=== PATIENT | male | born 1950 | race Caucasian/White ===

== ENCOUNTER → 2017-04-01 | Outpatient (CLI) | payer OTHER ==
[~2017-04-01] MED LIST: DEXAMETHASONE SOD PHOS 4 MG/ML VIAL ONE; IOHEXOL 300 MG/ML 50 ML VIAL. ONE; LIDOCAINE 1% PF 30 ML VIAL. ONE
== END ==
LOC: SURG 09:36
PROVIDERS: ATTEND Anesthesiology Pain Medicine
DX: M54.12 Radiculopathy, cervical region (principal); I10 Essential (primary) hypertension; E78.00 Pure hypercholesterolemia, unspecified; H40.9 Unspecified glaucoma; I63.9 Cerebral infarction, unspecified
CPT/HCPCS: 62321; J1100; J2001; Q9967

== ENCOUNTER 2019-11-27 06:58 | Inpatient (IN) | payer MEDICARE, OTHER ==
[~2019-11-27] VITALS: Ht 170.2 cm; Wt 60.5 kg
[2019-11-27] MEDS ORDERED: 0.9 % SODIUM CHLORIDE 10 ML DISP.SYRIN. IV PRN (07:00)
--- NOTE | 2019-11-27 07:00 | PHYS DOC ---
Past History Past Medical History: CAD, CVA, Dementia, Diabetes, ME, TIA Past Medical History dysphagia and chronic muscle weakness Past Surgical History poor historian, see assisted paperwork Smoking: Quit Greater Than 1 Year Alcohol Use: None General Adult EDM: Chief Complaint: shortnss of air, chest pain HPI: HPI: Patient is a 69 year old male who presents via EMS for evaluation of chest pain and shortness of air. Patient is currently a resident at the [facility]. Sats were below 90% prior to arrival. Patient placed on high flow oxygen nonrebreather and his sats were high 90%. Patient states he had central chest pain. Sats were 93% on 2 L improved to 97% on 3 L nasal cannula. Patient states he had a recent mild cough. There is no known cases of COVID at his facility. Patient was a mild to moderate distress on arrival. He is a somewhat poor historian and has a baseline status of dementia. Patient has a known coronary artery disease history. He is DNR Review of Systems: Review of Systems: Constitutional: Denies fever or chills Eyes: Denies change in visual acuity HENT: Denies nasal congestion or sore throat Respiratory: has cough and shortness of breath Cardiovascular: has chest pain with mild edema GI: Denies abdominal pain, nausea, vomiting, bloody stools or diarrhea : Denies dysuria Musculoskeletal: Denies back pain or joint pain Integument: Denies rash Neurologic: Denies headache, focal weakness or sensory changes Endocrine: Denies polyuria or polydipsia Lymphatic: Denies swollen glands Psychiatric: Denies depression or anxiety Heart Score: Risk Factors: Risk Factors: DM, Current or recent (<one month) smoker, HTN, HLP, family history of CAD, obesity. Risk Scores: Score 0 - 3: 2.5% MACE over next 6 weeks - Discharge Home Score 4 - 6: 20.3% MACE over next 6 weeks - Admit for Clinical Observation Score 7 - 10: 72.7% MACE over next 6 weeks - Early Invasive Strategies Physical Exam: PE: Constitutional: Well developed, well nourished, moderate distress, non-toxic appearance. [] HENT: Normocephalic, atraumatic, bilateral external ears normal, oropharynx moist, no oral exudates, nose normal. [] Eyes: PERRL, EOMI, conjunctiva normal, no discharge. [] Neck: Normal range of motion, no tenderness, supple, no stridor. [] Cardiovascular:tachy rate regular rhythm, no murmur [] Lungs & Thorax: Bilateral breath sounds slightly diminished, clear to auscultation [] Abdomen: Bowel sounds normal, soft, no tenderness. [] Skin: Warm, dry, no erythema, no rash. [] Back: No tenderness. [] Extremities: No tenderness, no cyanosis, no clubbing, ROM intact, mild edema. [] Neurologic: Alert and oriented to person, normal motor function, normal sensory function, no focal deficits noted. [] Psychologic: flat normal, judgement normal, mood normal. [] Current Patient Data: Labs: Laboratory Tests Test 11/27/19 07:07 11/27/19 07:23 White Blood Count 6.8 x10^3/uL Red Blood Count 3.89 x10^6/uL Hemoglobin 13.0 g/dL Hematocrit 38.6 % Mean Corpuscular Volume 99 fL Mean Corpuscular Hemoglobin 33 pg Mean Corpuscular Hemoglobin Concent 34 g/dL Red Cell Distribution Width 14.2 % Platelet Count 191 x10^3/uL Neutrophils (%) (Auto) 69 % Lymphocytes (%) (Auto) 19 % Monocytes (%) (Auto) 5 % Eosinophils (%) (Auto) 6 % Basophils (%) (Auto) 1 % Neutrophils # (Auto) 4.7 x10^3uL Lymphocytes # (Auto) 1.3 x10^3/uL Monocytes # (Auto) 0.4 x10^3/uL Eosinophils # (Auto) 0.4 x10^3/uL Basophils # (Auto) 0.1 x10^3/uL Sodium Level 140 mmol/L Potassium Level 4.4 mmol/L Chloride Level 105 mmol/L Carbon Dioxide Level 33 mmol/L Anion Gap 2 Blood Urea Nitrogen 15 mg/dL Creatinine 1.1 mg/dL Estimated GFR (Cockcroft-Gault) 66.8 BUN/Creatinine Ratio 14 Glucose Level 202 mg/dL Lactic Acid Level 0.8 mmol/L Calcium Level 8.7 mg/dL Total Bilirubin 0.4 mg/dL Aspartate Amino Transf (AST/SGOT) 22 U/L Alanine Aminotransferase (ALT/SGPT) 34 U/L Alkaline Phosphatase 82 U/L Troponin I Quantitative 0.022 ng/mL Total Protein 6.2 g/dL Albumin 2.9 g/dL Albumin/Globulin Ratio 0.9 Prothrombin Time 34.8 SEC Prothromb Time International Ratio 3.4 Current Medications Medications (Trade) Dose Ordered Sig/Roma Route PRN Reason Start Time Stop Time Status Last Admin Dose Admin Sodium Chloride (Normal Saline Flush) 10 ml QSHIFT PRN IV AFTER MEDS AND BLOOD DRAWS 11/27/19 07:00 Aspirin (Aspirin Chewable) 324 mg 1X ONCE PO 11/27/19 07:15 11/27/19 07:18 DC 11/27/19 07:15 Sodium Chloride 1,000 ml @ 1,000 mls/hr 1X ONCE IV 11/27/19 07:45 11/27/19 08:44 11/27/19 07:47 Piperacillin Sod/ Tazobactam Sod 3.375 gm/Sodium Chloride 50 ml @ 100 mls/hr 1X ONCE IV 11/27/19 07:45 11/27/19 08:14 11/27/19 07:51 Sodium Chloride 1,000 ml @ 1,000 mls/hr 1X ONCE IV 11/27/19 07:45 11/27/19 08:44 11/27/19 07:47 Piperacillin Sod/ Tazobactam Sod (Zosyn) 3.375 gm STK-MED ONCE IV 11/27/19 07:44 11/27/19 07:44 DC Sodium Chloride 50 ml @ As Directed STK-MED ONCE .ROUTE 11/27/19 07:45 11/27/19 07:45 DC EKG: EKG: EKG: sinus tachy rate 112, NS ST segment changes, not STEMI[] Radiology/Procedures: Radiology/Procedures: [place] [address] IMAGING REPORT Signed PATIENT: SYDNIE CORREA ACCOUNT: [id number] : 1950 LOCATION: ER AGE: 69 SEX: M EXAM STATUS: REG ER ORD. PHYSICIAN: KRISHNA NEGRON DO REASON: chest pain, shortness of breath Hx-no heart/lung hx PROCEDURE: PORTABLE CHEST 1V PORTABLE CHEST 1V History: Chest pain, shortness of breath Comparison: April 01, 2015 Findings: Single view of the chest is submitted. There is again emphysema. There is no dependent pleural fluid, pneumothorax, or lobar consolidation. However there is increased interstitial opacity bilaterally with basilar predominance. Pericardial cardiac silhouette is considered within normal limits given technique, size similar. There is atherosclerotic calcification near aortic arch. There are thoracic spinal stimulator leads. There is evidence of calcific tendinosis of the left shoulder. Impression: 1. There is increased interstitial opacity with basilar predominance as may be due to interstitial edema or infiltrate. There is emphysema. Electronically signed by: Caitlin Ortega MD (11/27/2019 7:45 AM) [id number] DICTATED AND SIGNED BY: CAITLIN ORTEGA MD DATE: 11/27/19 07 CC: BJ DARBY; KRISHNA NEGRON DO ~ [] Course & Med Decision Making: Course & Med Decision Making Pertinent Labs and Imaging studies reviewed. (See chart for details) [] Dragon Disclaimer: Dragon Disclaimer: This electronic medical record was generated, in whole or in part, using a voice recognition dictation system. 0740 current blood pressure 81/57. This is lower than the presenting blood pressure that was above 100 systolic. 30 cc/kg bolus NS has been ordered as well as dose of IV Zosyn. 0800 Stable, still has SBP low 80s. Some improvement after being placed in trendelenburg position. Pt is awake and baseline alert with no focal deficits at this time. Tachycardia has resolved. No obvious indication of a bacterial illness including white blood cell count or lactic acid elevation 0815 patient having increasing respirator stress and a recheck shows that he now has some rhonchi bilaterally present. I am concerned he may be fluid ov erloaded. He had been given a liter bolus because of concerns about his hypertension. When his blood pressure was taken on his left arm it is now 163/75. Patient given dose of Lasix 40 mg IV. Patient received approximately 1.5 L bolus so further fluid infusion halted. Sats are above 93% on 5 L nasal cannula. Patient is DNR. 0821 Dr. Taylor is the accepting physician to the telemetry bed. He wanted pt to be on telemetry bed rather than ICU 0828 patient going into severe respiratory distress. He would not allow us to have oxygen on and tries to stand up. Dose of ketamine given for sedation as well as soft restraints. 0855 patient resting comfortably and doing well. Sats back up to 90% on BiPAP. Awaiting ICU bed Departure Departure: Impression: Primary Impression: Pulmonary edema Qualified Codes: J81.0 - Acute pulmonary edema Additional Impressions: Respiratory failure Qualified Codes: J96.01 - Acute respiratory failure with hypoxia Precordial chest pain Hypotension Disposition: ADMITTED INPATIENT Admitting Physician: Braulio Taylor Condition: STABLE Referrals: SHERRY LANDRY APRN (PCP) Justification of Admission: Justification of Admission: Justification of Admission Dx: Yes CHF: Hemodynamic Instability Respiratory Failure: Severe Resp Distress COVID-19 Assessment COVID-19 Patient Risks: Age 65 or older: Yes Sign of co-morbidity: Yes Exp to person + for COVID: No Exp to PUI: No Travel from affected area: No Lower respiratory symptoms: Yes Fever: No Other: No PPE Use: Full PPE with N95 mask or PAPR: Yes Critical Care Time Critical care time was 30 minutes exclusive of procedures. Patient placed on BiPAP but required sedation with ketamine so we could tolerate that device. Dr. Taylor aware of this change KRISHNA NEGRON DO Nov 27, 2019 07:00
[2019-11-27] MEDS ORDERED: ASPIRIN CHEWABLE 81 MG TABLET. PO ONE (07:15)
--- NOTE | 2019-11-27 07:17 | EKG ---
[address] [address] Test Date: 2019-11-27 Test Time: 06:58:06 Pat Name: SYDNIE CORREA Department: Room: Gender: M Principal Quality Engineer: : 1950 Requested By: KRISHNA NEGRON Order Number: [id number] Reading MD: Measurements Intervals [place] Rate: 112 P: 86 [place]: 130 QRS: 58 QRSD: 80 T: 66 QT: 326 QTc: 447 Interpretive Statements SINUS TACHYCARDIA LEFT ATRIAL ABNORMALITY QRS(T) CONTOUR ABNORMALITY CONSISTENT WITH ANTEROSEPTAL INFARCT PROBABLY OLD ABNORMAL ECG RI6.02 No previous ECG available for comparison
[2019-11-27 07:25] LABS: BASO # 0.1 x10^3/uL (0.0-0.2); BASO % 1 % (0-3); EOS # 0.4 x10^3/uL (0.0-0.7); EOS % 6 % (0-3); HEMATOCRIT 38.6 % (39.0-53.0); LYMPH # 1.3 x10^3/uL (1.0-4.8); LYMPH % 19 % (24-48); MEAN CORPUSCULAR HEMOGLOBIN 33 pg (25-35); MEAN CORPUSCULAR HGB CONC 34 g/dL (31-37); MEAN CORPUSCULAR VOLUME 99 fL (79-100); MONO # 0.4 x10^3/uL (0.0-1.1); MONO % 5 % (0-9); NEUT # 4.7 x10^3uL (1.8-7.7); NEUT % 69 % (31-73); PLATELET COUNT 191 x10^3/uL (140-400); RED BLOOD COUNT 3.89 x10^6/uL (4.30-5.70); RED CELL DISTRIBUTION WIDTH 14.2 % (11.5-14.5); WHITE BLOOD COUNT 6.8 x10^3/uL (4.0-11.0)
[2019-11-27] MEDS ORDERED: PIPERACILLIN/TAZOBACTAM 3.375 GM VIAL IV ONE (07:44)
[2019-11-27] MEDS ORDERED: PIPERACILLIN/TAZOBACTAM 3.375 GM in IV NORMAL SALINE 50ML 50 ML IV ONE (07:45)
[2019-11-27] MEDS ORDERED: IV NORMAL SALINE 50ML 50 ML ONE (07:45)
[2019-11-27] MEDS ORDERED: IV NORMAL SALINE 1,000ML 1,000 ML IV ONE ×2 (07:45)
--- NOTE | 2019-11-27 07:48 | RAD ---
PORTABLE CHEST 1V History: Chest pain, shortness of breath Comparison: April 01, 2015 Findings: Single view of the chest is submitted. There is again emphysema. There is no dependent pleural fluid, pneumothorax, or lobar consolidation. However there is increased interstitial opacity bilaterally with basilar predominance. Pericardial cardiac silhouette is considered within normal limits given technique, size similar. There is atherosclerotic calcification near aortic arch. There are thoracic spinal stimulator leads. There is evidence of calcific tendinosis of the left shoulder. Impression: 1. There is increased interstitial opacity with basilar predominance as may be due to interstitial edema or infiltrate. There is emphysema. Electronically signed by: Jonathan Bocanegra MD (11/27/2019 7:45 AM) [id number]
[2019-11-27 07:53] LABS: CALCIUM 8.7 mg/dL (8.5-10.1); CREATININE 1.1 mg/dL (0.7-1.3); GFR 66.8; POTASSIUM 4.4 mmol/L (3.5-5.1)
[2019-11-27 07:58] LABS: ALBUMIN 2.9 g/dL (3.4-5.0); ALBUMIN/GLOBULIN RATIO 0.9 (1.0-1.7); TOTAL BILIRUBIN 0.4 mg/dL (0.2-1.0); TOTAL PROTEIN 6.2 g/dL (6.4-8.2)
[2019-11-27] MEDS ORDERED: FUROSEMIDE 40 MG/4 ML VIAL ONE (08:13)
[2019-11-27] MEDS ORDERED: FUROSEMIDE 40 MG/4 ML VIAL IVP ONE (08:20)
[2019-11-27] MEDS ORDERED: KETAMINE HCL 500 MG/10 ML VIAL. ONE (08:28)
[2019-11-27] MEDS ORDERED: KETAMINE HCL IN NACL, ISO-OSM 50 MG/5 ML SYRINGE IV ONE ×2 (08:30→08:45)
[2019-11-27] MEDS ORDERED: ONDANSETRON PF 4 MG/2 ML VIAL. IVP PRN (08:45)
[2019-11-27] MEDS ORDERED: FUROSEMIDE 100 MG/10 ML VIAL IVP ONE (08:45)
[2019-11-27 09:46] LABS: BILIRUBIN,URINE NEG (NEG); CLARITY,URINE HAZY; COLOR,URINE YELLOW; GLUCOSE,URINE NEG (NEG); NITRITE,URINE NEG (NEG); UROBILINOGEN,URINE 0.2 mg/dL (0.2 mg/dL)
[2019-11-27 09:47] LABS: BACTERIA,URINE 0 /HPF (0-FEW); SQUAMOUS EPITHELIAL CELL,UR MANY /LPF
[2019-11-27 09:48] LABS: GRANULAR CASTS,URINE OCC /HPF; HYALINE CASTS, URINE OCC /HPF
[2019-11-27 11:00] VITALS: BP 126/53
--- NOTE | 2019-11-27 11:03 | NUR ---
Pt admitted to ICU bed 6. Pt arrived on unit via gurney accompanied by ems. Pt belongings checked, vitals taken, head to toe completed. Pt resting at time of this note.
--- NOTE | 2019-11-27 12:55 | HP ---
ADMIT DATE: 11/27/2019 ATTENDING PHYSICIAN: Dr. Washington. CHIEF COMPLAINT: Shortness of breath. HISTORY OF PRESENT ILLNESS: The patient is a 69-year-old gentleman, resident of [facility] in [place]. He was sent to the ED with increasing shortness of breath. He had decreased saturation and the saturations were below 90%. He was given some fluids. Chest x-ray demonstrated cardiomegaly, vascular congestion and COPD changes. Because of guidelines in the ED, he was tested for COVID-19 coronavirus. There is not any evidence of outbreak of coronavirus at this facility. His chest x-ray appears he is ____. There is a longstanding history of heart failure. He has had a previous stroke. He is not a good historian. He was admitted with acute on chronic respiratory failure related to congestive heart failure. PAST MEDICAL HISTORY: Gleaned from the care home notes he has a history of coronary artery disease, congestive heart failure, type 2 diabetes, old CVA with residual deficits, metabolic encephalopathy, old myocardial infarct, dysphagia. He had a feeding tube placed, but this recently fell out. He had been eating. He is a DNR per advanced directive. CURRENT MEDICATIONS: Reviewed. He was on aspirin daily, Lipitor 80 mg daily, Lantus insulin, Coreg 3.125 mg b.i.d., Coumadin 7 mg daily, latanoprost eye drops, multivitamin, NovoLog along with Lantus insulin, Protonix 40 daily, paroxetine 10 mg daily, Flomax, thiamine, and Ultram p.r.n. pain. ALLERGIES: He has no recorded drug allergies. FAMILY HISTORY: Unobtainable. REVIEW OF SYSTEMS: Unobtainable due to the patient's condition. PHYSICAL EXAMINATION: GENERAL: When I saw him, this is a pleasant, but chronically ill-appearing gentleman, he did respond to some questions. INITIAL VITAL SIGNS: Showed a blood pressure 140/71, pulse is 94 and regular, respirations 18, he is afebrile, and oxygen saturations 100% on BiPAP. HEENT: Head is without trauma. Pupils are reactive. Sclerae nonicteric. Oropharynx is clear. NECK: Supple. Venous pressure distended at 45 degrees. LUNGS: Fairly good air movement. He has minimal crackles at the bases. CARDIOVASCULAR: Showed distant heart tones. No gallops. Peripheral pulses are palpable and full. ABDOMEN: Soft, scaphoid, nontender. Previous surgical scar from feeding tube is healed over. There is no fistula or drainage ____. There is no guarding or rebound tenderness. No masses palpated. EXTREMITIES: Showed no cyanosis or edema. He is bedridden and nonambulatory. Espinal catheter is in place. SKIN: Warm and dry. NEUROLOGIC: He is not aware of place or time. PERTINENT LABORATORY AND X-RAY STUDIES: Chest x-ray as noted. Hemoglobin is 13.0 g/dL with white count of 6800. Electrolytes are within normal range with a sodium 140 mEq/L, potassium is 4.4 mEq/L, creatinine is 1.1 mg/dL, nonfasting blood sugar 202 mg/dL. The first set of cardiac enzymes was measured at 0.02, which I do not believe is ischemia. ASSESSMENT: 1. A 69-year-old gentleman with acute on chronic congestive heart failure. 2. Acute on chronic respiratory failure. 3. Underlying chronic obstructive pulmonary disease. 4. Known coronary artery disease with previous myocardial infarction. 5. Old stroke with residual deficits. 6. Essential hypertension. 7. Dysphagia following stroke. 8. Recent placement of a percutaneous endoscopic gastrostomy tube, which has since fallen out. 9. Chronic anticoagulation. PLAN: 1. Admit to the inpatient unit. 2. We will continue preload and afterload reduction. I will order more Lasix. 3. Diabetic diet. 4. Serial chemistries. 5. Continue some home meds. ABHINAV WASHINGTON MD DR: SMILEY/[place] JOB#: [id number] / [id number]
[2019-11-27] MEDS ORDERED: ACETAMINOPHEN 325 MG TABLET PO PRN (13:30)
[2019-11-27] MEDS ORDERED: ATOR80TA72 PO (14:10)
[2019-11-27] MEDS ORDERED: LATA2.5D3 OU (14:10)
[2019-11-27] MEDS ORDERED: PANT40TA6 PO (14:10)
[2019-11-27] MEDS ORDERED: TRAM50TA PO (14:10)
[2019-11-27] MEDS ORDERED: INSU100I13 SQ (14:10)
[2019-11-27] MEDS ORDERED: CARV6.253 PO (14:10)
[2019-11-27] MEDS ORDERED: PARO10TA3 PO (14:10)
[2019-11-27] MEDS ORDERED: TAMSULOSIN PO (14:10)
[2019-11-27 15:00] VITALS: BP 122/89
[2019-11-27] MEDS ORDERED: WARFARIN 7.5 MG TABLET. PO SCH (16:00)
[2019-11-27] MEDS ORDERED: DEXTROSE 50% 25 GM / 50ML DISP.SYRIN. IV PRN (16:15)
--- NOTE | 2019-11-27 16:26 | CARD ---
MR#: [id number] Date of Study: 11/27/2019 Ordering Physician: ABHINAV WASHINGTON, Referring Physician: ABHINAV WASHINGTON, Tech: Deb Parks RDCS APPROVED REPORT EXAM: Two-dimensional and M-mode echocardiogram with Doppler and color Doppler. Other Information Quality : Fair INDICATION Cardiac Disease: CAD Chest Pain Dementia-Patient unable to remain still for the procedure 2D DIMENSIONS RVDd2.0 (2.9-3.5cm)Left Atrium(2D)2.8 (1.6-4.0cm) IVSd0.5 (0.7-1.1cm)Aortic Root(2D)2.8 (2.0-3.7cm) LVDd5.9 (3.9-5.9cm)LVOT Diameter2.3 (1.8-2.4cm) PWd0.7 (0.7-1.1cm)LVDs5.0 (2.5-4.0cm) FS (%) 15.8 %SV56.9 ml LVEF(%)30.0 (>50%) Aortic Valve AoV Peak Cuate.77.2cm/sAoV VTI11.4cm AO Peak GR.2.4mmHgAO Mean GR.1mmHg JAZMINE (VTI)4.62ol3SX P 1/2 [id number] Mitral Valve MV E Pyyulzlo79.4cm/sMV DECEL [id number] MV A Iouyrott37.5cm/sE/A Ratio1.2 LEFT VENTRICLE The left ventricle is normal size. There is normal left ventricular wall thickness. Left ventricle sy stolic function is severely impaired. The Ejection Fraction is 20-25%. RIGHT VENTRICLE The right ventricle is normal size. The right ventricular systolic function is normal. ATRIA The left atrium size is normal. The right atrium size is normal. The interatrial septum is intact wit h no evidence for an atrial septal defect or patent foramen ovale as noted on 2-D or Doppler imaging. AORTIC VALVE The aortic valve is not well visualized. Doppler and Color Flow revealed mild to moderate aortic regu rgitation. There is no significant aortic valvular stenosis. MITRAL VALVE The mitral valve is calcified but opens well. There is no evidence of mitral valve prolapse. There is no mitral valve stenosis. Doppler and Color-flow revealed trace mitral regurgitation. TRICUSPID VALVE The tricuspid valve is normal in structure and function. Doppler and Color Flow revealed no tricuspid valve regurgitation noted. There is no tricuspid valve stenosis. PULMONIC VALVE The pulmonic valve is not well visualized. GREAT VESSELS The aortic root is normal in size. The ascending aorta is not well seen. The IVC is normal in size an d collapses >50% with inspiration. PERICARDIAL EFFUSION There is moderate pleural effusion. There is no evidence of significant pericardial effusion. Critical Notification Critical Value: No <Conclusion> Left ventricle systolic function is severely impaired. The Ejection Fraction is 20-25%. Mild to moderate aortic regurgitation. Trace mitral regurgitation. There is no evidence of significant pericardial effusion. Signed by : Aly Gonzales, Electronically Approved : 11/27/2019 16:26:17
[2019-11-27] MEDS: INSULIN LISPRO 300 UNITS/3 ML VIAL. SQ SCH (17:00)
[2019-11-27 19:25] VITALS: BP 143/61
[2019-11-27] MEDS: LISINOPRIL 10 MG TABLET PO SCH (20:37)
[2019-11-27 22:45] VITALS: BP 120/46
[2019-11-28 08:00] VITALS: BP 118/53
[2019-11-28] MEDS: LACTOBACILLUS RHAMNOSUS GG 1 CAPSULE. PO SCH (08:34)
[2019-11-28] MEDS: ASPIRIN CHEWABLE 81 MG TABLET. PO SCH (08:34)
[2019-11-28] MEDS: FUROSEMIDE 80 MG TABLET PO SCH (08:35)
[2019-11-28] MEDS: LISINOPRIL 10 MG TABLET PO SCH (08:35)
[2019-11-28] MEDS: INSULIN LISPRO 300 UNITS/3 ML VIAL. SQ SCH ×3 (09:10→16:56)
[2019-11-28 12:00] VITALS: BP 125/53
[2019-11-28] MEDS: THIAMINE 100 MG TABLET. PO SCH (12:11)
--- NOTE | 2019-11-28 12:19 | NUR ---
Pharmacy Warfarin Dosing Note S:Pharmacy consulted to assist with anticoagulation therapy with target INR: 2 -3 O:SYDNIE CORREA is a 69 year old M with post [place] LABS: Last INR: 2.9 Last HGB: 13 Last HCT: 38.6 Last PLT: 191 Last dose of Hold given on 11/26/19 at [facility] [place] Previous Regimen: 7 mg daily Vitamin K given: N Drug Interaction Changes: None Ongoing Drug Interactions: none INR on admission = 3.4, dose held on 11/26. A:INR within desired range. [facility] advised that pt has been mostly stable on 7mg daily. Occasionally patient's INR will rise due to med/diet changes, they'll hold 1-2 doses and pt will be within range again. Advised that they would give regular daily dose with pt's current INR of 2.9. Since pt has reportedly been stable/therapeutic on this dose we will resume his regular regimen. P: Warfarin dose: 7mg Today at 1600 Bridge Therapy: None Next INR due 11/28 Pharmacy anticoagulation service will continue to follow. [facility], 11/28/19 7321
[2019-11-28 16:00] VITALS: BP 105/64
[2019-11-28] MEDS ORDERED: WARFARIN 1 MG TABLET. PO ONE (16:00)
[2019-11-28] MEDS ORDERED: WARFARIN 6 MG TABLET. PO ONE (16:00)
--- NOTE | 2019-11-28 18:35 | NUR ---
Pt remained relaxed throughout the day with some stiffness and frequently exercised all extremities. Looked out through the window for the majority of the day and rested peacefully in bed. Only complaint is frequent urination from diuresis and wants to go home. Pending rapid COVID 19 result sent out today awaiting results in order to return to [facility].
[2019-11-28 20:07] VITALS: BP 112/59
[2019-11-28 22:20] VITALS: BP 125/71
--- NOTE | 2019-11-29 02:30 | PN ---
DATE: 11/28/2019 ATTENDING PHYSICIAN: Dr. Washington. CHIEF COMPLAINT: Shortness of breath. SUBJECTIVE: The patient is less dyspneic. He is doing well. He wants to go home. He is pleasantly confused. He has been living at [facility] in [place]. He had an echocardiogram done, which showed evidence of decreased ejection fraction. OBJECTIVE FINDINGS: VITAL SIGNS: Today, his blood pressure is 120/46 in the left arm, 143/61 in the right arm. There is significant difference due to a documented history of subclavian steal syndrome. Pulse is 92 and regular. He is afebrile. Oxygen saturation is adequate with 2 liters of nasal cannula. HEENT: Head is without trauma. Pupils are reactive. Sclerae is nonicteric. Oropharynx is clear. NECK: Supple, no bruits identified. LUNGS: Good breath sounds. CARDIOVASCULAR: Showed regular heart tones. No obvious gallops. Peripheral pulses are palpable and full. ABDOMEN: Soft, scaphoid, nontender, no organomegaly. Bowel sounds are hypoactive. EXTREMITIES: Show trace edema. NEUROLOGIC: Focally intact. He is pleasantly confused. Speech is fluent. The 2-D echocardiogram showed diminished ejection fraction estimated at 20-25%. Electrolytes were reviewed. Medications were reviewed. ASSESSMENT: 1. A 69-year-old gentleman with acute on chronic congestive heart failure, compensated. 2. Acute on chronic respiratory failure, resolved. 3. Underlying chronic obstructive pulmonary disease. 4. Known coronary artery disease with previous MD and ischemic cardiomyopathy. 5. Old stroke with cerebrovascular accident. 6. Documented subclavian steal syndrome on the left side. 7. Essential hypertension. 8. Dysphagia. 9. Recent placement of endoscopic gastrostomy tube, which has since fallen out. 10. Chronic anticoagulation. PLAN: 1. Continue preload and afterload reduction. 2. Daily Lasix that will be continued. 3. We will restart his Coumadin upon discharge. 4. The reason he is still here, there was a COVID-19 coronavirus swab done in the ED, once the results of that is available and negative, we can return him and discharge him back to [facility]. ABHINAV WASHINGTON MD DR: SMILEY/[place] JOB#: [id number] / [id number]
--- NOTE | 2019-11-29 06:22 | NUR ---
Shift Note: Pt is a/o to self only, VSS throughout shift, no c/o pain or n/v at this time, IV is saline locked, pt is voiding clear yellow urine, Covid test was negative, pt anticipating discharge today (pt confused and thinks he needs to go to work, this is his baseline d/t dementia).
[2019-11-29 06:29] VITALS: BP 126/59
[2019-11-29 07:34] LABS: CALCIUM 8.8 mg/dL (8.5-10.1); CREATININE 0.9 mg/dL (0.7-1.3); GFR 84.2; POTASSIUM 3.7 mmol/L (3.5-5.1)
[2019-11-29] MEDS: THIAMINE 100 MG TABLET. PO SCH (08:37)
[2019-11-29] MEDS: LACTOBACILLUS RHAMNOSUS GG 1 CAPSULE. PO SCH (08:37)
[2019-11-29] MEDS: FUROSEMIDE 80 MG TABLET PO SCH (08:37)
[2019-11-29] MEDS: ASPIRIN CHEWABLE 81 MG TABLET. PO SCH (08:37)
[2019-11-29] MEDS: LISINOPRIL 10 MG TABLET PO SCH (09:03)
[2019-11-29] MEDS: INSULIN LISPRO 300 UNITS/3 ML VIAL. SQ SCH ×2 (10:35→12:34)
[2019-11-29 11:00] VITALS: BP 143/58
--- NOTE | 2019-11-29 12:28 | NUR ---
Pharmacy Warfarin Dosing Note S:Pharmacy consulted to assist with anticoagulation therapy started with target INR: 2 -3 O:SYDNIE CORREA is a 69 year old M with Recurrent VTE LABS: Last INR: 2 Last HGB: 13 Last HCT: 38.6 Last PLT: 191 Last dose of 7MG given on 11/28/19 at 1600 Previous Regimen: 7 mg daily Vitamin K given: N Drug Interaction Changes: Same Interacting Drug Ongoing Drug Interactions: none INR on admission = 3.4, dose held on 11/26. A:INR Within desired Range. Target Range for this patient is: 2 -3 P: Warfarin dose: 7MG Today at 1600 Bridge Therapy: None Next INR due 11/30/19 @ 0600 Pharmacy anticoagulation service will continue to follow. FLORES SEWELL [facility], 11/29/19 1246
[2019-11-29] MEDS ORDERED: WARF1TAB2 PO (14:27)
--- NOTE | 2019-11-29 14:32 | NUR ---
Patient in chair in room at shift change. Alert to self with forgetfulness. Pleasant and cooperative with assessment and medication administration. Patient needed prompting for eating and taking medications. Ambulates independently without difficulty. VSS, denies pain or SOA. Will continue to monitor.
[2019-11-29] MEDS ORDERED: WARFARIN 3 MG TABLET. PO ONE (16:00)
[2019-11-29] MEDS ORDERED: WARFARIN 4 MG TABLET. PO ONE (16:00)
--- NOTE | 2019-11-29 16:04 | NUR ---
Patient discharged to [facility] which is where he was admitted from. Report called to Catherine at [facility]. Medications reviewed and prescriptions attached to discharge paperwork. IV's removed.
--- NOTE | 2019-11-29 18:09 | DS ---
DATE OF DISCHARGE: 11/27/2019 HOSPITAL COURSE: The patient is a 69-year-old male patient, a resident at [facility], who was admitted with worsening shortness of breath. Chest x-ray demonstrated cardiomegaly and vascular congestion and COPD changes. Given the guidelines in the Emergency Department, he was tested for COVID-19 coronavirus. There is not any evidence of an outbreak of coronavirus at this facility. Chest x-ray was consistent with congestive heart failure. He has had a previous stroke. He is not a good historian. He was admitted with acute on chronic respiratory failure related to congestive heart failure, treated aggressively with diuresis. He has had an echocardiogram, which showed that his left ventricular systolic function is severely impaired, ejection fraction is of 20-25%, [id number] aortic regurgitation, trace mitral regurgitation. There is no evidence of significant pericardial effusion. PHYSICAL EXAMINATION: GENERAL: When I saw him today, he was sitting comfortably in the edge of the bed, in no apparent distress. He was pale, not jaundice, cyanosis or thyromegaly. No jugular venous distention. No lower limb edema. VITAL SIGNS: His heart rate was 77, blood pressure 143/58, temperature 97.5, respiratory rate was 23, and oxygen saturation was 94% on 2 liters of oxygen. The rest of clinical exam is stable and particularly his lungs are clear. His oxygen saturation was 95% on room air. LABORATORY DATA: His lab work showed his prothrombin time was 20.6, INR of 2. His sodium was 140, potassium 3.7, chloride 103, bicarbonate 29, anion gap of 8, BUN 20, creatinine 0.9, estimated GFR was 84 mL per minute. His glucose was 223 and calcium was 8.8. His white cell count was 6800, hemoglobin 13, hematocrit 39, MCV 99 and platelet count of 191,000. His COVID-19 by PCR was negative. DISCHARGE MEDICATIONS: He was discharged back to [facility] to continue on warfarin 3 mg daily, atorvastatin calcium 80 mg at bedtime, carvedilol 3.125 mg twice a day, Lantus insulin 10 units subcutaneously at bedtime, latanoprost 1 drop to both eyes at bedtime, Protonix 40 mg daily, paroxetine 10 mg daily, tamsulosin 0.4 mg daily, tramadol 50 mg every 6 hours. FINAL DISCHARGE DIAGNOSES: 1. Acute on chronic congestive heart failure, well compensated. 2. Acute on chronic respiratory failure, resolved. 3. Chronic obstructive pulmonary disease. 4. Coronary artery disease, status post myocardial infarction and ischemic cardiomyopathy. 5. Cerebrovascular accident. 6. Documented subclavian steal syndrome on the left side. 7. Essential hypertension. 8. Dysphagia. 9. Recent placement of endoscopic gastrostomy tube that has since fallen out. 10. Chronic anticoagulation. ALBERTO VALLES MD DR: BRUNO/[place] JOB#: [id number] / [id number]
--- NOTE | 2019-11-29 23:02 | DS ---
DATE OF DISCHARGE: 11/29/2019 HISTORY AND HOSPITAL COURSE: The patient is a 69-year-old male patient, resident at [facility], who was admitted with increasing shortness of breath. He was hypoxic. His chest x-ray demonstrated cardiomegaly and vascular congestion and COPD changes. Because of guidelines in the Emergency Department, he was tested for COVID-19 coronavirus. There is not any evidence of outbreaks of coronavirus at that facility. His chest x-ray appeared to have heart failure. He has a longstanding history of heart failure. He has had previous stroke. He is not a good historian. He was admitted with acute on chronic respiratory failure related to congestive heart failure. He apparently was treated with furosemide and he did very well. His COVID test was undetected and when I saw him today, he was sitting at the edge of the bed comfortably in no apparent respiratory distress... DICTATION ENDS HERE ALBERTO VALLES MD DR: BRUNO/[place] JOB#: [id number] / [id number]
== END 2019-11-29 16:00 | DRG 291 ==
LOC: ER 06:58 → ICU 10:28
PROVIDERS: ADMIT Hospitalist; ATTEND Internal Medicine
DX: I11.0 Hypertensive heart disease with heart failure (principal); J96.21 Acute and chronic respiratory failure with hypoxia; G45.8 Other transient cerebral ischemic attacks and related syndromes; I50.23 Acute on chronic systolic (congestive) heart failure; E11.9 Type 2 diabetes mellitus without complications; F03.90 Unspecified dementia, unspecified severity, without behavioral disturbance, psychotic disturbance, mood disturbance, and anxiety; I25.10 Atherosclerotic heart disease of native coronary artery without angina pectoris; I25.2 Old myocardial infarction; I25.5 Ischemic cardiomyopathy; J43.9 Emphysema, unspecified; Z66 Do not resuscitate; Z79.01 Long term (current) use of anticoagulants; Z86.73 Personal history of transient ischemic attack (TIA), and cerebral infarction without residual deficits; Z87.891 Personal history of nicotine dependence; Z20.828 Contact with and (suspected) exposure to other viral communicable diseases
CPT/HCPCS: 36415; 51702; 71045; 80048; 80053; 81001; 82947; 83605; 84484; 85025; 85610; 87040; 93005; 93306; 94660; 96365; 96375; J1815; J1940; J2543; 99291-25; J7030; U0003-CS

== ENCOUNTER 2020-05-14 17:43 | Emergency (ER) | payer MEDICARE ==
[~2020-05-14] VITALS: Ht 322.6 cm; Wt 60.5 kg
[~2020-05-14 17:43] MED LIST changes: +ATOR80TA72 PO; +CARV6.253 PO; -DEXAMETHASONE SOD PHOS 4 MG/ML VIAL ONE; +INSU100I13 SQ; -IOHEXOL 300 MG/ML 50 ML VIAL. ONE; +LATA2.5D3 OU; -LIDOCAINE 1% PF 30 ML VIAL. ONE; +PANT40TA6 PO; +PARO10TA3 PO; +TAMSULOSIN PO; +TRAM50TA PO; +WARF1TAB2 PO
[2020-05-14 17:58] VITALS: BP 144/70
--- NOTE | 2020-05-14 18:36 | PHYS DOC ---
Past History Past Medical History: CAD, CVA, Dementia, Diabetes, [place], TIA Additional Past Medical Histor: ENCEPHALOPATHY, EMOLISM OF AORTA, ACUTE RESPIRATORY FAILURE, Past Surgical History: Other Smoking: Quit Greater Than 1 Year Alcohol Use: None Adult General Chief Complaint Chief Complaint: NOSEBLEED [facility] HPI Patient is a 70-year-old male [facility] [place] [facility] nose[facility]ed. Patient is DNR status and on hospice care. He currently takes 81 mg aspirin daily in addition to Coumadin for unknown reason. States he had approximately 3 self-limiting nosebleeds today that responded with direct pressure all involving his right nare. He never has history of recurrent nosebleeds like this. He usually has his INR checked weekly, last time it was checked was May 09, 2020 and was 2.4 at that time. Patient otherwise has no complaints, is not dizzy, no lightheadedness, no falls, no syncope, no chest pain, no shortness of breath, no abdominal pain, no other signs of overt bleeding with urination or defecation, no hemoptysis. Review of Systems Review of Systems Fourteen body systems of review of systems have been reviewed. See HPI for pertinent positives and negative responses, other jones all other systems are negative, non-pertinent or non-contributory Allergies Allergies Allergies Coded Allergies Type Severity Reaction Last Updated Verified No Known Drug Allergies 05/14/20 No Physical Exam Physical Exam Constitutional: Well developed, well nourished, no acute distress, non-toxic appearance. HENT: Normocephalic, atraumatic, bilateral external ears normal, oropharynx dry, no oral exudates, dried residual blood around patient's perioral area, external nose unremarkable, dried residual blood within the right nare with no obvious signs of active bleeding and/or trauma Eyes: PERRLA, EOMI, conjunctiva normal, no discharge. Neck: Normal range of motion, no tenderness, supple, no stridor. Cardiovascular: Heart rate regular, sinus rhythm, no murmurs rubs or gallops Lungs & Thorax: Bilateral breath sounds clear to auscultation, no respiratory distress Abdomen: Bowel sounds normal, soft, no tenderness, no masses, no pulsatile masses. Nonsurgical abdomen, no peritoneal signs Skin: Warm, dry, no erythema, no rash. Back: No tenderness, no CVA tenderness. Extremities: No tenderness, no cyanosis, no clubbing, no edema. Dried blood present on bilateral hands from prior epistaxis episodes today, right index finger nail with residual blood underneath nail concerning for potential digital penetration/trauma Neurologic: Alert and oriented X 3, grossly normal motor & sensory function, no gross focal deficits noted. Psychologic: Behavior normal for situation Current Patient Data Vital Signs Vital Signs Date Time Temp Pulse Resp B/P (MAP) Pulse Ox O2 Delivery O2 Flow Rate FiO2 05/14/20 17:58 83 18 144/70 (94) 95 Room Air 05/14/20 17:45 97.6 Lab Results Laboratory Tests Test 05/14/20 18:30 White Blood Count 4.2 x10^3/uL (4.0-11.0) Red Blood Count 3.86 x10^6/uL (4.30-5.70) Hemoglobin 12.0 g/dL (13.0-17.5) Hematocrit 37.1 % (39.0-53.0) Mean Corpuscular Volume 96 fL (79-100) Mean Corpuscular Hemoglobin 31 pg (25-35) Mean Corpuscular Hemoglobin Concent 33 g/dL (31-37) Red Cell Distribution Width 16.4 % (11.5-14.5) Platelet Count 178 x10^3/uL (140-400) Prothrombin Time 28.7 SEC (9.4-11.4) Prothromb Time International Ratio 2.9 (0.9-1.1) EKG EKG [] Radiology/Procedures Radiology/Procedures [] Heart Score HEART Score for Chest Pain: HEART Score for Chest Pain Response (Comments) Value History Slighlty/Non-Suspicious 0 Age > 65 2 Risk Factors >3 Risk Factors or Hx CAD 2 Total 4 Risk Factors: Risk Factors: DM, Current or recent (<one month) smoker, HTN, HLP, family history of CAD, obesity. Risk Scores: Risk Factors: DM, Current or recent (<one month) smoker, HTN, HLP, family history of CAD, obesity. Course & Med Decision Making Course & Med Decision Making Discussed with the patient all findings and diagnostic testing. I discussed most likely diagnosis of epistaxis in patient on aspirin and Coumadin therapy. I suspect source to be either digital trauma versus dry nares. I called patient's care home and discussed case with his nurse, I discussed need for utilizing daily nasal sprays to moisten nares given recent cold weather front and cold air. I also advised her to monitor patient to ensure he does not try to pick nose which might have caused patient's recurrent episodes today. No medical changes required at present given INR within range, it is unknown why he is on Coumadin but I advised nurse to discuss this more with PCP who obviously knows more about patient's past medical history them we do. Strict return precautions were also discussed at length with good understanding by care home nurse. We discussed and reviewed how to manage nosebleed should they arise in the future and when to return for repeat evaluation. Hemodynamically stable, asymptomatic and well-appearing at time of disposition [facility] to [facility] Dragon Disclaimer Dragon Disclaimer This electronic medical record was generated, in whole or in part, using a voice recognition dictation system. Departure Departure: Impression: Primary Impression: Right-sided nosebleed Additional Impression: Anticoagulated on Coumadin Disposition: DC HOME SELF CARE/HOMELESS Condition: STABLE Referrals: BJ DARBY (PCP) Patient Instructions: Nosebleed Additional Instructions: You were seen for a nosebleed. You should blow your nose and hold pressure on the lower part of your nose if you develop a nose bleed again. Continue this fo r 20 minutes or until the bleeding stops. Do not remove the pressure to look before this time as your nose will start bleeding again. Your bleeding is most likely due to irritation due to irritation and/or trauma. You were also on aspirin and Coumadin which are blood thinning medications, I am unsure why you are on Coumadin but this should be discussed further with your care home physician. You need to avoid putting anything in your nose in the future (e.g. fingers, kleenex, qtips, etc). Utilize Afrin nose spray as needed if available at your care home. I would also recommend you utilize daily saline nose spray to moisten your nares as they appeared very dry likely due to current cold weather front in our area today. It was a pleasure to take care of you and I wish you the best going forward Problem Qualifiers AUNDREA LYNN DO May 14, 2020 18:36
[2020-05-14 18:44] LABS: HEMATOCRIT 37.1 % (39.0-53.0); RED BLOOD COUNT 3.86 x10^6/uL (4.30-5.70); RED CELL DISTRIBUTION WIDTH 16.4 % (11.5-14.5); WHITE BLOOD COUNT 4.2 x10^3/uL (4.0-11.0)
== END 2020-05-14 19:20 | disposition home or self-care (01) ==
LOC: ER 17:43
DX: R04.0 Epistaxis (principal); Z79.01 Long term (current) use of anticoagulants; I25.10 Atherosclerotic heart disease of native coronary artery without angina pectoris; F03.90 Unspecified dementia, unspecified severity, without behavioral disturbance, psychotic disturbance, mood disturbance, and anxiety; E11.9 Type 2 diabetes mellitus without complications; I25.2 Old myocardial infarction; Z86.73 Personal history of transient ischemic attack (TIA), and cerebral infarction without residual deficits; Z87.891 Personal history of nicotine dependence
CPT/HCPCS: 36415; 85027; 85610; 99283

== ENCOUNTER 2020-08-23 14:30 | Emergency (ER) | payer MEDICARE ==
[~2020-08-23] VITALS: Ht 167.6 cm; Wt 60.5 kg
[2020-08-23 14:30] VITALS: BP 163/60
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
== END 2020-08-23 16:12 | disposition home or self-care (01) ==
LOC: ER 14:30
DX: R45.1 Restlessness and agitation (principal); I25.10 Atherosclerotic heart disease of native coronary artery without angina pectoris; F03.90 Unspecified dementia, unspecified severity, without behavioral disturbance, psychotic disturbance, mood disturbance, and anxiety; E11.9 Type 2 diabetes mellitus without complications; I25.2 Old myocardial infarction; Z86.73 Personal history of transient ischemic attack (TIA), and cerebral infarction without residual deficits; Z87.891 Personal history of nicotine dependence
CPT/HCPCS: 99284

== ENCOUNTER 2021-03-16 15:28 | Emergency (ER) | payer MEDICARE ==
[~2021-03-16] VITALS: Ht 167.6 cm; Wt 60.5 kg
[2021-03-16 15:36] VITALS: BP 116/63
--- NOTE | 2021-03-16 15:43 | PHYS DOC ---
Past History Past Medical History: CAD, CVA, Dementia, Diabetes, [place], TIA, Other Additional Past Medical Histor: ENCEPHALOPATHY, EMOLISM OF AORTA, ARF, Past Surgical History: Other Smoking: Quit Greater Than 1 Year Alcohol Use: None General Adult EDM: Chief Complaint: SHOULDER INJURY HPI: HPI: 70-year-old male presents from his care facility with right shoulder pain. Patient has dementia at baseline. He tells me that the right shoulder hurts. He states that he fell on it but he does not remember the details of how it happened. The care facility told EMS that the patient fell forward out of the wheelchair and caught himself with his arms. He was back in the wheelchair when EMS arrived. Patient denies any other injuries or complaints at this time. Review of Systems: Review of Systems: Constitutional: Denies fever or chills Eyes: Denies change in visual acuity HENT: Denies nasal congestion or sore throat Respiratory: Denies cough or shortness of breath Cardiovascular: Denies chest pain or edema GI: Denies abdominal pain, nausea, vomiting, bloody stools or diarrhea : Denies dysuria Musculoskeletal: Right shoulder pain Integument: Denies rash Neurologic: Denies headache, focal weakness or sensory changes Endocrine: Denies polyuria or polydipsia Lymphatic: Denies swollen glands Psychiatric: Denies depression or anxiety Allergies: Allergies: Allergies Coded Allergies Type Severity Reaction Last Updated Verified No Known Drug Allergies 05/14/20 No Physical Exam: PE: Constitutional: Well developed, well nourished, no acute distress, non-toxic appearance. [] HENT: Normocephalic, atraumatic, bilateral external ears normal, oropharynx moist, no oral exudates, nose normal. [] Eyes: PERRLA, EOMI, conjunctiva normal, no discharge. [] Neck: Normal range of motion, no tenderness, supple, no stridor. [] Cardiovascular:Heart rate regular rhythm, no murmur [] Lungs & Thorax: Bilateral breath sounds clear to auscultation [] Abdomen: Bowel sounds normal, soft, no tenderness, no masses, no pulsatile ma sses. [] Skin: Warm, dry, no erythema, no rash. [] Back: No tenderness, no CVA tenderness. [] Extremities: Right shoulder tender to palpation, no ecchymosis, no obvious deformity. Range of motion limited by pain. [] Neurologic: Alert and oriented X 3, normal motor function, normal sensory func tion, no focal deficits noted. [] Psychologic: Affect normal, judgement normal, mood normal. [] Current Patient Data: Vital Signs: Vital Signs Date Time Temp Pulse Resp B/P (MAP) Pulse Ox O2 Delivery O2 Flow Rate FiO2 03/16/21 15:36 98.2 75 16 116/63 (80) 99 Room Air EKG: EKG: [] Radiology/Procedures: Radiology/Procedures: [] Impressions: Exam Date: 03/16/2021 3:34 PM XR SHOULDER_RIGHT 2+ VIEWS Indication: Reason: fall / Spl. Instructions: pt moving, y view repeated 2 still pt would not cooperate / History: . FINDINGS/ IMPRESSION: No acute fracture or dislocation. Moderate degenerative changes are noted. Alignment is maintained. Small calcifications in the humeral head are consistent with calcific tendinitis. Aorta is calcified. The soft tissues are within normal limits. Electronically signed by: Rodríguez Hoover MD (03/16/2021 4:37 PM) [id number] DICTATED AND SIGNED BY: RODRÍGUEZ HOOVER MD DATE: 03/16/21 1613 CC: ELEANOR HURD DO; BJ DARBY ~MTH0 0 Heart Score: C/O Chest Pain: N/A Risk Factors: Risk Factors: DM, Current or recent (<one month) smoker, HTN, HLP, family history of CAD, obesity. Risk Scores: Score 0 - 3: 2.5% MACE over next 6 weeks - Discharge Home Score 4 - 6: 20.3% MACE over next 6 weeks - Admit for Clinical Observation Score 7 - 10: 72.7% MACE over next 6 weeks - Early Invasive Strategies Course & Med Decision Making: Course & Med Decision Making Pertinent Labs and Imaging studies reviewed. (See chart for details) The patient's x-ray is negative for fracture. He already has fentanyl pain patches for chronic back pain. These should help with his shoulder pain. He is stable for discharge at this time. [] Dragon Disclaimer: Dragon Disclaimer: This electronic medical record was generated, in whole or in part, using a voice recognition dictation system. Departure Departure: Impression: Primary Impression: Shoulder pain, right Qualified Codes: M25.511 - Pain in right shoulder Disposition: 01 HOME / SELF CARE / HOMELESS Condition: STABLE Referrals: BJ DARBY (PCP) Patient Instructions: Shoulder Pain, [id number] ELEANOR HURD DO Mar 16, 2021 15:43
--- NOTE | 2021-03-16 16:39 | RAD ---
Exam Date: 03/16/2021 3:34 PM XR SHOULDER_RIGHT 2+ VIEWS Indication: Reason: fall / Spl. Instructions: pt moving, y view repeated 2 still pt would not coopera te / History: . FINDINGS/ IMPRESSION: No acute fracture or dislocation. Moderate degenerative changes are noted. Alignment is maintained. Small calcifications in the humeral head are consistent with calcific tendinitis. Aorta is calcifi ed. The soft tissues are within normal limits. Electronically signed by: Mateo Hoover MD (03/16/2021 4:37 PM) [id number]
== END 2021-03-16 17:31 | disposition home or self-care (01) ==
LOC: ER 15:28
DX: M25.511 Pain in right shoulder (principal); I25.10 Atherosclerotic heart disease of native coronary artery without angina pectoris; F03.90 Unspecified dementia, unspecified severity, without behavioral disturbance, psychotic disturbance, mood disturbance, and anxiety; E11.9 Type 2 diabetes mellitus without complications; I25.2 Old myocardial infarction; Z86.73 Personal history of transient ischemic attack (TIA), and cerebral infarction without residual deficits; Z87.891 Personal history of nicotine dependence
CPT/HCPCS: 73030; 99283

== ENCOUNTER 2021-03-19 08:29 | Emergency (ER) | payer MEDICARE, OTHER ==
[~2021-03-19] VITALS: Ht 167.6 cm; Wt 57.0 kg
[2021-03-19 08:35] VITALS: BP 187/90
--- NOTE | 2021-03-19 08:48 | PHYS DOC ---
Past History Past Medical History: CAD, CVA, Dementia, Diabetes, [place], TIA, Other Additional Past Medical Histor: ENCEPHALOPATHY, EMOLISM OF AORTA, ARF, Past Medical History Limited secondary to dementia Past Surgical History: Other Past Surgical History Limited secondary to dementia Smoking: Quit Greater Than 1 Year Alcohol Use: None Social History Limited secondary to dementia General Adult EDM: Chief Complaint: Agitation HPI: HPI: 70-year-old male with past medical history of dementia presents via EMS from assisted with report of increased agitation this morning. Patient with history of right shoulder pain for which patient was seen in the emergency department at [facility] on Wednesday03/16/2021. Per [facility] review x- rays obtained at that time without acute fracture or dislocation and noted some possible calcified tendonitis. [facility] reports patient became agitated this morning and complained of right shoulder pain. Patient was given a hydrocodone and a tramadol at 0730. Patient reportedly became more hostile and was banging his head on wall. Nurse tried to give patient 2 mg of Ativan which he reportedly "spit at her ". [facility] concerned that patient requires psychiatric evaluation and therefore had patient transferred to the ER for further evaluation. Patient denies any suicidal ideation. History of present illness limited secondary to dementia. Review of Systems: Review of Systems: Constitutional: Denies fever or chills GI: Denies vomiting : Denies dysuria or hematuria Musculoskeletal: Reports right shoulder pain Integument: Denies rash or skin lesions Neurologic: Denies headache Review of systems limited secondary to dementia. Current Medications: Current Meds: Current Medications Medications (Trade) Dose Ordered Sig/Roma Start Time Stop Time Status Last Admin Dose Admin Diazepam (Valium) 5 mg 1X ONCE 03/19/21 08:45 03/19/21 08:46 Allergies: Allergies: Allergies Coded Allergies Type Severity Reaction Last Updated Verified No Known Drug Allergies 05/14/20 No Physical Exam: PE: Constitutional: Elderly, thin, complains of pain to right shoulder HENT: Normocephalic, atraumatic Eyes: PERRL, EOMI, conjunctiva normal, no discharge Neck: Normal range of motion, supple Lungs & Thorax: No respiratory distress, equal chest rise and fall Abdomen: Soft, no tenderness Skin: Warm, dry, no erythema, no rash Extremities: Right glenohumeral tenderness, ROM limited secondary to pain, no edema, right radial pulse +2 Neurologic: Alert and oriented X name only, confused, no focal deficits noted Psychologic: Affect agitated, judgment abnormal, denies suicidal ideation EKG: EKG: [] Radiology/Procedures: Radiology/Procedures: [] Heart Score: C/O Chest Pain: N/A Course & Med Decision Making: Course & Med Decision Making Elderly patient with past medical history of dementia presents with report of increased agitation which appears secondary to patient's right shoulder pain. Patient with recent ED evaluation on Wednesday03/16/2021 for shoulder with x-rays without acute fracture/dislocation but noted calcified tendonitis obtained at at time per [employer] review. Patient reportedly received hydrocodone and tramadol at 0730. Nurse had attempted to give patient some Ativan which he reportedly "spit at her ". [facility] sent patient for a "psych examination ". Patient denying suicidal or homicidal ideation. Patient is agitated but seems to stem around patient's right shoulder pain. Valium 5 mg p.o. given. Shoulder immobilizer applied for comfort. Patient does not meet criteria for inpatient psychiatric stay. Patient safe for discharge back to assisted and may follow normal protocol for possible [facility] admission through our facility if needed. Patient stable for discharge back to assisted with outpatient follow-up with PCP/orthopedics. Orthopedic referral provided. [facility] report given. Williams Disclaimer: Williams Disclaimer: This electronic medical record was generated, in whole or in part, using a voice recognition dictation system. Splinting Splinting : Location: Right shoulder Pre-Made Type: shoulder immobilizer Pre-Proc Neuro Vasc Exam: normal Post-Proc Neuro Vasc Exam: normal, unchanged from pre-exam Departure Departure: Impression: Primary Impression: Right shoulder pain Qualified Codes: M25.511 - Pain in right shoulder; G89.29 - Other chronic pain Additional Impressions: Dementia Qualified Codes: G30.9 - Alzheimer's disease, unspecified; F02.81 - Dementia in other diseases classified elsewhere with behavioral disturbance Agitation Disposition: HOME / SELF CARE / HOMELESS (back to assisted) Condition: STABLE Referrals: BJ DARBY (PCP) DANETTE PACHECO MD Patient Instructions: Dementia, [id number], Shoulder Immobilizer, Shoulder Pain, [id number] ALLISON ONEAL DO Mar 19, 2021 08:47
[2021-03-19] MEDS: diazePAM 5 MG TABLET. PO ONE (09:30)
== END 2021-03-19 11:15 | disposition home or self-care (01) ==
LOC: ER 08:29
DX: M25.511 Pain in right shoulder (principal); F03.90 Unspecified dementia, unspecified severity, without behavioral disturbance, psychotic disturbance, mood disturbance, and anxiety; R45.1 Restlessness and agitation; E11.9 Type 2 diabetes mellitus without complications; Z86.73 Personal history of transient ischemic attack (TIA), and cerebral infarction without residual deficits; Z87.891 Personal history of nicotine dependence
CPT/HCPCS: 29105; 99283-25

== ENCOUNTER 2021-03-20 12:23 | Emergency (ER) | payer MEDICARE, OTHER ==
[~2021-03-20] VITALS: Ht 167.6 cm; Wt 54.7 kg
[2021-03-20 12:29] VITALS: BP 167/69
--- NOTE | 2021-03-20 13:49 | PHYS DOC ---
Past History Past Medical History: CAD, CVA, Dementia, Diabetes, [place], TIA, Other Additional Past Medical Histor: ENCEPHALOPATHY, EMOLISM OF AORTA, ARF, (BERENICE DIAZ) Past Surgical History: Other (BERENICE DIAZ) Smoking: Quit Greater Than 1 Year Alcohol Use: None (BERENICE DIAZ) General Adult EDM: Chief Complaint: UPPER EXTREMITY PAIN HPI: HPI: Patient is a 70 year old male well-known to the emergency department with history of dementia and chronic right shoulder pain who presents with right shoulder pain from [facility]. Patient was seen yesterday here in the emergency department for identical complaints. Patient has several prescribed medications available to him at his residential facility. Patient responds affirmatively when asked if he has shoulder pain, but does not converse otherwise. (BERENICE DIAZ) Review of Systems: Review of Systems: Unable to obtain due to patient's baseline dementia. (BERENICE DIAZ) Allergies: Allergies: Allergies Coded Allergies Type Severity Reaction Last Updated Verified No Known Drug Allergies 05/14/20 No (BERENICE DIAZ) Physical Exam: PE: Exam limited secondary to patient being uncooperative. Constitutional: Well developed, well nourished, no acute distress, non-toxic appearance. HENT: Normocephalic, atraumatic, bilateral external ears normal, no oral exudat es, external nose normal. Neck: Normal range of motion, no tenderness, no stridor. Cardiovascular: Heart rate regular rhythm. Lungs & Thorax: Bilateral breath sounds clear to auscultation. Back: No step-off, no tenderness tenderness, no CVA tenderness. Extremities: No tenderness, no cyanosis, no clubbing, no edema. Neurologic: No focal deficits noted. Psychologic: Affect uncooperative, poor judgment. (BERENICE DIAZ) Current Patient Data: Vital Signs: Vital Signs Date Time Temp Pulse Resp B/P (MAP) Pulse Ox O2 Delivery O2 Flow Rate FiO2 03/20/21 12:29 97.9 98 16 167/69 (101) 100 (BERENICE DIAZ) Heart Score: C/O Chest Pain: N/A (BERENICE DIAZ) Course & Med Decision Making: Course & Med Decision Making Pertinent Labs and Imaging studies reviewed. (See chart for details) Patient is extremely uncooperative and prefers to sleep rather than being interviewed and examined. Patient does respond affirmatively to right shoulder pain, however refuses to answer questions related to pain. When asked if there was anything that I could provide for him here in the emergency department, he did not answer. Patient will be discharged back to his [facility] facility with instruction to administer pain medication as prescribed. (BERENICE DIAZ) Course & Med Decision Making Did not see or evaluate patient. Did not discuss patient with PA. Agree with PAs work-up and disposition per note. (KRISHNA TATE MD) Dragon Disclaimer: Dragon Disclaimer: This electronic medical record was generated, in whole or in part, using a voice recognition dictation system. (BERENICE DIAZ) Departure Departure: Impression: Primary Impression: Chronic shoulder pain Qualified Codes: M25.511 - Pain in right shoulder; G89.29 - Other chronic pain Additional Impression: Dementia Qualified Codes: F03.91 - Unspecified dementia with behavioral disturbance Disposition: HOME / SELF CARE / HOMELESS Condition: STABLE Referrals: BJ DARBY (PCP) Patient Instructions: Shoulder Pain, [id number] Additional Instructions: Patient should be given pain medication as prescribed. Please return to the emergency department if new symptoms develop. BEERNICE DIAZ Mar 20, 2021 13:49 KRISHNA TATE MD Mar 20, 2021 13:52
== END 2021-03-20 16:20 | disposition home or self-care (01) ==
LOC: ER 12:23
DX: M25.511 Pain in right shoulder (principal); F03.90 Unspecified dementia, unspecified severity, without behavioral disturbance, psychotic disturbance, mood disturbance, and anxiety; E11.9 Type 2 diabetes mellitus without complications; Z87.891 Personal history of nicotine dependence; Z86.73 Personal history of transient ischemic attack (TIA), and cerebral infarction without residual deficits
CPT/HCPCS: 96372; 99283; J2060

== ENCOUNTER 2021-04-06 04:10 | Inpatient (IN) | payer MEDICARE, OTHER ==
[~2021-04-06] VITALS: Ht 172.7 cm; Wt 54.0 kg
[2021-04-06] VITALS (48 sets, daily range): BP systolic 60–178; BP diastolic 32–104
--- NOTE | 2021-04-06 04:16 | PHYS DOC ---
Past History Past Medical History: A-Fib, Anxiety, Arthritis, CAD, CVA, Dementia, Diabetes, [place], TIA, Other Additional Past Medical Histor: ENCEPHALOPATHY, EMOLISM OF AORTA, ARF, Past Surgical History: Other Smoking: Quit Greater Than 1 Year Alcohol Use: None General Adult HPI: HPI: ".. Help...Help.. I need Help... take at easy .. take at easy.. get out of here..." ".. Mother fuck.. fuck off.. bring me down.. Fuck everything hurt.. bring me down.." help me.. bring me down..." " Fuck my arm hurts...".." Arm... Arm.. its the fucking arm ..mother fucker... the arm..." Patient is a 70 year old male who presents with above hx and comoplaints of fall. Pt. a resident of [facility] since 04/02/2021. Pt. hx of fall this morning. Pt. had a witness fall where he struck his head. Pt. fell on Lt. side and localized pain primary in Lt. arm.. Pt. has hx of Lt sided weakness from previous CVA. Pt. has history of anxiety disorder, cerebral infarction, embolism and thrombosis of aorta, major depressive disorder, neurological neglect, problems with urethra, TIAs, vascular dementia, psychotic disorder, dysphagia, cerebral infarction, long-term use of anticoagulants, generalized muscle weakness, myocardial infarctions, type 2 diabetes with hyperglycemia, unspecified dementia behavioral disturbances, gait disorder. Patient currently following with Dr. Charisma Darby at the senior care. Patient is DNR. Review of Systems: Review of Systems: Constitutional: Denies fever or chills Eyes: Denies change in visual acuity HENT: Denies nasal congestion or sore throat Respiratory: Denies cough or shortness of breath Cardiovascular: Complains of left-sided chest pain GI: Denies abdominal pain, nausea, vomiting, bloody stools or diarrhea : Denies dysuria Musculoskeletal: Complains of left arm pain Integument: Denies rash Neurologic: Complaints of headache. Has history of left-sided, fweakness or sensory changes from previous stroke Endocrine: Denies polyuria or polydipsia Lymphatic: Denies swollen glands Psychiatric: Denies depression or anxiety Family History: Family History: Not currently available Current Medications: Current Meds: See nursing for home meds Allergies: Allergies: Allergies Coded Allergies Type Severity Reaction Last Updated Verified No Known Drug Allergies 05/14/20 No Physical Exam: PE: Constitutional: Moderate acute distress, demented and frail and appearance. [] HENT: Normocephalic, contusion to scalp, bilateral external ears normal, oropharynx moist, no oral exudates, nose normal. [] Eyes: PERRLA, EOMI, conjunctiva normal, no discharge. [] Neck: Normal range of motion, some upper neck tenderness, supple, no stridor. [] Cardiovascular:Heart rate regular rhythm, no murmur []. PMI to left Lungs & Thorax: Bilateral breath sounds equal apex with scattered wheezes and basilar crackles bilaterally. On auscultation [] patient has some upper left wall chest tenderness. Abdomen: Bowel sounds normal, soft, no tenderness, no masses, no pulsatile masses. Old surgery scars, distended, Skin: Warm, dry, no erythema, no rash. Poor turgor Back: No tenderness, no CVA tenderness. [] Extremities: Left upper arm tenderness, no cyanosis, no clubbing, ROM intact, no edema. Left-sided weakness from previous stroke. Distal neurovascular equal and left hand as it is in right hand. Neurologic: Alert and oriented to name,, moves extremities on request, appears to have distal sensory,, left-sided weakness which he states is old stroke Psychologic: Affect agitated, yelling, judgement impaired , mood depressed EKG: EKG: My interpretation EKG shows a sinus rhythm at 86 bpm. Some nonspecific contour normality and anterior septal changes. No findings acute STEMI of contralateral changes. [] Radiology/Procedures: Radiology/Procedures: [address] [address] IMAGING REPORT Signed PATIENT: SYDNIE CORREA ACCOUNT: [id number] : 1950 LOCATION: ER AGE: 70 SEX: M EXAM STATUS: REG ER ORD. PHYSICIAN: DANETTE EVANS MD REASON: fall, chest wall pain Lt PROCEDURE: PORTABLE CHEST 1V XR CHEST 1V History: Fall, chest wall pain left. Comparison: Shoulder radiographs 03/16/2021 Technique: Portable AP radiograph of the chest. Findings: The lungs are adequately and symmetrically inflated. No airspace consolidation, pleural effusion or pneumothorax. Calcification of the aortic arch. Cardiac mediastinal silhouette and pulmonary vasculature are within normal limits. Spinal stimulator leads project over the thoracic spine. There is irregularity at the right clavicular head superior margin, suspect subacute injury. Left neck surgical clip. The left humerus fracture is not imaged on this exam. Impression: 1. No acute cardiopulmonary process. 2. Cortical irregularity at the superior aspect of the right clavicular head. Possibly subacute injury. Correlate with tenderness at this location. Electronically signed by: Alphonso Vallecillo MD (04/06/2021 5:43 AM) [id number] DICTATED AND SIGNED BY: ALPHONSO VALLECILLO MD DATE: 04/06/21539 CC: DANETTE EVANS MD; CHARISMA DARBY ~MTH0 [address] [place] [address] IMAGING REPORT Signed PATIENT: SYDNIE CORREA ACCOUNT: [id number] : 1950 LOCATION: ER AGE: 70 SEX: M EXAM STATUS: REG ER ORD. PHYSICIAN: DANETTE EVANS MD REASON: Fall, Head Injury-on anticoagulants PROCEDURE: CT HEAD AND CERVICAL SPINE WO CT HEAD AND C-SPINE WO History: Fall, head injury on anticoagulants. Comparison: None. Technique: Noncontrast CT of the head and cervical spine. Findings: CT HEAD: There is no evidence for intracranial mass or hemorrhage. There is no hydrocephalus or midline shift. No abnormal extra-axial fluid collections are present. There are large bilateral posterior parietal-occipital infarcts The visualized paranasal sinuses and mastoid air cells are clear. The skull and scalp are within normal limits. CT CERVICAL SPINE: There is no evidence for fracture in the cervical spine. Alignment is normal. Multilevel degenerative disc and facet disease. No destructive osseous lesions are seen. Bilateral carotid calcifications. Impression: 1. Large bilateral HAND BLOCKER territory infarcts, suspect chronic. No acute hemorrhage. 2. No acute osseous abnormality in the cervical spine. Findings discussed with Dr. Evans at 04/06/2021 5:40 AM. FOR INTERNAL CODING PURPOSES RESULT CODE: (C) ------- Exposure: One or more of the following individualized dose reduction techniques were utilized for this examination: 1. Automated exposure control 2. Adjustment of the mA and/or kV according to patient size 3. Use of iterative reconstruction technique. Electronically signed by: Alphonso Vallecillo MD (04/06/2021 5:40 AM) [id number] DICTATED AND SIGNED BY: ALPHONSO VALLECILLO MD DATE: 04/06/21531 CC: DANETTE EVANS MD; CHARISMA DARBY ~[facility] [address] [address] IMAGING REPORT Signed PATIENT: SYDNIE CORREA ACCOUNT: [id number] : 1950 LOCATION: ER AGE: 70 SEX: M EXAM STATUS: REG ER ORD. PHYSICIAN: DANETTE EVANS MD REASON: fall, chest wall pain Lt PROCEDURE: HUMERUS LEFT XR HUMERUS_LT 2 VIEWS History: Fall, chest wall pain on the left. Comparison: Chest x-ray 04/06/2021 Technique: 2 views the left shoulder. Findings: Mildly comminuted fracture of the proximal humerus surgical neck with angulation and displacement. Calcification in region of the rotator cuff insertion are likely chronic. The visualized left lung is clear. Degenerative changes of the acromioclavicular joint. Mild contour irregularity in the lateral sixth and seventh ribs, likely old healed fracture. Impression: 1. Mildly comminuted proximal left humerus fracture at the surgical neck with angulation and displacement. Electronically signed by: Alphonso Vallecillo MD (04/06/2021 5:45 AM) [id number] DICTATED AND SIGNED BY: ALPHONSO VALLECILLO MD DATE: 04/06/21542 CC: DANETTE EVANS MD; CHARISMA DARBY ~[facility]0 0 [[address] [address] IMAGING REPORT Signed PATIENT: SYDNIE CORREA ACCOUNT: [id number] : 1950 LOCATION: ICU AGE: 70 SEX: M EXAM STATUS: ADM IN ORD. PHYSICIAN: ALBERTO VALLES MD REASON: fall on xarelto PROCEDURE: CT CHEST ABDOMEN PELVIS WO PQRS Compliance Statement: One or more of the following individualized dose reduction techniques were utilized for this examination: 1. Automated exposure control 2. Adjustment of the mA and/or kV according to patient size 3. Use of iterative reconstruction technique Exam performed: CT chest, abdomen and pelvis with contrast HISTORY: Fall, patient is on blood thinners DATE OF SERVICE: 04/06/2021. COMPARISON: None available. TECHNIQUE: Contiguous helical acquisitions are obtained through the chest, abdomen and pelvis without IV contrast. Sagittal and coronal reformatted images are obtained and reviewed. FINDINGS: CT of chest: Structures at the thoracic inlet including both lobes of the thyroid gland are normal. Unopacified neck and intrathoracic great vessels are normal in course and caliber. Diffuse atheromatous aortic calcification is seen. Extensive atheromatous coronary calcification with a suspected stent in the left anterior descending branch. The heart size is normal. No pericardial effusion. No mediastinal or hilar adenopathy is seen. Lungs are clear. There are mild interstitial opacities in the dependent aspect of both lower lobes likely chronic. Bones are normal. CT abdomen and pelvis: Unopacified liver, spleen, pancreas and gallbladder are normal. Both adrenal glands and bilateral kidneys are normal in size with no evidence of hydronephrosis or nephrolithiasis. Diffuse atheromatous aortic calcification is noted. Small and large bowel loops are nondilated and unremarkable. The urinary bladder is distended. No pelvic masses or lymphadenopathy seen. There is stool impaction the rectosigmoid region. Bones are normal. IMPRESSION: No acute findings seen in the CT chest, abdomen and pelvis. Chronic changes as outlined above. Electronically signed by: Ansley Henriquez MD (04/06/2021 1:23 PM) [facility] DICTATED AND SIGNED BY: ANSLEY HENRIQUEZ MD DATE: 04/06/21 1320 CC: ALBERTO VALLES MD; WILNERCHARISMA ~MTH0 0 ][address] [address] IMAGING REPORT Signed PATIENT: SYDNIE CORREA ACCOUNT: [id number] : 1950 LOCATION: ICU AGE: 70 SEX: M EXAM STATUS: ADM IN ORD. PHYSICIAN: ALBERTO VALLES MD REASON: AMS s/p fall, possible bleed PROCEDURE: CT HEAD WO CONTRAST Exam: CT head without contrast. Date: 04/06/2021, comparison:CT head and cervical spine without contrast from earlier today Indication: Altered mental status, status post fall Technique: Helical acquisitions are obtained from the foramen magnum to the vertex and through the cervical spine without IV contrast. Sagittal and coronal reformatted images are obtained and reviewed. Findings: CT head without contrast The study somewhat limited due to motion blur. There is low attenuation within the periventricular white matter consistent with chronic small vessel ischemic disease. Prominence of cortical sulci and ventricular system is noted. There is cerebral atrophy. Chronic bilateral HAND BLOCKER infarcts redemonstrated. Midline structures are central. No hydrocephalus. No suspicious cerebral edema. No mass lesion or midline shift is seen. No extra axial fluid collection, intracranial hemorrhage or acute ischemia is detected. The visualized paranasal sinuses and mastoid air cells are clear. The osseous calvarium appears unremarkable. Impression: 1.Chronic small vessel ischemic disease and cerebral atrophy. 2.No acute findings. End impression CT cervical spine findings: Normal sagittal alignment is preserved. Craniocervical and C1-2 articulation appears preserved. The vertebral body heights and intravertebral disc spaces are maintained. There is no henry or retrolisthesis. There is no perching of facets. Mild diffuse osteophytic spurring is noted. No prevertebral soft tissue swelling is identified. There are no fractures. No definite lymphadenopathy or masses are seen within the neck. The visualized thyroid and salivary glands appears preserved. Impression: No acute abnormality seen in the CT scan cervical spine. Spondylotic changes. PQRS Compliance Statement: One or more of the following individualized dose reduction techniques were utilized for this examination: 1. Automated exposure control 2. Adjustment of the mA and/or kV according to patient size 3. Use of iterative reconstruction technique Electronically signed by: Ansley Henriquez MD (04/06/2021 1:15 PM) [facility] DICTATED AND SIGNED BY: ANSLEY HENRIQUEZ MD DATE: 04/06/21 1308 CC: ALBERTO VALLES MD; CHARISMA DARBY ~MTH0 0 Heart Score: C/O Chest Pain: N/A HEART Score for Chest Pain: HEART Score for Chest Pain Response (Comments) Value History Moderately Suspicious 1 ECG Nonspecific Repolarizatio 1 Age > 65 2 Risk Factors 1 or 2 Risk Factors 1 Troponin < Normal Limit 0 Total 5 Risk Factors: Risk Factors: DM, Current or recent (<one month) smoker, HTN, HLP, family history of CAD, obesity. Risk Scores: Score 0 - 3: 2.5% MACE over next 6 weeks - Discharge Home Score 4 - 6: 20.3% MACE over next 6 weeks - Admit for Clinical Observation Score 7 - 10: 72.7% MACE over next 6 weeks - Early Invasive Strategies Course & Med Decision Making: Course & Med Decision Making Pertinent Labs and Imaging studies reviewed. (See chart for details) Discussed presentation, testing and treatment plan with and Dr. Idris Bello. - Plan admit for pain control. At this time appears to be a nonoperable fracture. Impression: 1. Trip and fall 2. Left comminuted humerus head fracture 3. Vascular dementia 4. CHF n BNP 3,827 5. DNR [] Dragon Disclaimer: Dragon Disclaimer: This electronic medical record was generated, in whole or in part, using a voice recognition dictation system. Departure Departure: Referrals: CHARISMA DARBY (PCP) Williams Disclaimer This chart was dictated in whole or in part using Voice Recognition software in a busy, high-work load, and often noisy Emergency Department environment. It may contain unintended and wholly unrecognized errors or omissions. DANETTE EVANS MD Apr 06, 2021 04:16
--- NOTE | 2021-04-06 04:53 | EKG ---
[address] [address] Test Date: 2021-04-06 Test Time: 04:48:46 Pat Name: SYDNIE CORREA Department: Room: Gender: M [employer]: : 1950 Requested By: DANETTE EVANS Order Number: [id number] Reading MD: Aly Gonzales Measurements Intervals [place] Rate: 86 P: 77 DE: 152 QRS: 57 QRSD: 86 T: 86 QT: 366 QTc: 441 Interpretive Statements SINUS RHYTHM QRS(T) CONTOUR ABNORMALITY CONSISTENT WITH ANTEROSEPTAL INFARCT PROBABLY OLD ABNORMAL ECG Electronically Signed On 04-06-2021 7:11:40 [employer] by Aly Gonzales
[2021-04-06] MEDS ORDERED: IV RINGERS SOLUTION,LACTATED 1,000 ML IV SCH (05:00)
[2021-04-06] MEDS ORDERED: MORPHINE SULFATE 10 MG/ML SYRINGE. SQ ONE (05:00)
[2021-04-06 05:09] LABS: BASO # 0.1 x10^3/uL (0.0-0.2); BASO % 1 % (0-3); EOS # 0.2 x10^3/uL (0.0-0.7); EOS % 2 % (0-3); HEMATOCRIT 37.9 % (39.0-53.0); HEMOGLOBIN 12.5 g/dL (13.0-17.5); LYMPH # 1.5 x10^3/uL (1.0-4.8); LYMPH % 17 % (24-48); MEAN CORPUSCULAR HEMOGLOBIN 34 pg (25-35); MEAN CORPUSCULAR HGB CONC 33 g/dL (31-37); MEAN CORPUSCULAR VOLUME 101 fL (79-100); MONO # 0.9 x10^3/uL (0.0-1.1); MONO % 10 % (0-9); NEUT # 6.3 x10^3uL (1.8-7.7); NEUT % 70 % (31-73); PLATELET COUNT 234 x10^3/uL (140-400); RED BLOOD COUNT 3.74 x10^6/uL (4.30-5.70); RED CELL DISTRIBUTION WIDTH 13.3 % (11.5-14.5); WHITE BLOOD COUNT 8.9 x10^3/uL (4.0-11.0)
[2021-04-06 05:20] LABS: CALCIUM 9.5 mg/dL (8.5-10.1); CREATININE 1.1 mg/dL (0.7-1.3); GFR 66.6; POTASSIUM 4.5 mmol/L (3.5-5.1)
[2021-04-06 05:33] LABS: ALBUMIN 2.9 g/dL (3.4-5.0); DIRECT BILIRUBIN 0.2 mg/dL (0.0-0.2); MAGNESIUM 2.2 mg/dL (1.8-2.4); TOTAL BILIRUBIN 0.5 mg/dL (0.2-1.0); TOTAL PROTEIN 6.8 g/dL (6.4-8.2)
--- NOTE | 2021-04-06 05:42 | RAD ---
CT HEAD AND C-SPINE WO History: Fall, head injury on anticoagulants. Comparison: None. Technique: Noncontrast CT of the head and cervical spine. Findings: CT HEAD: There is no evidence for intracranial mass or hemorrhage. There is no hydrocephalus or midline shift. No abnormal extra-axial fluid collections are present. There are large bilateral posterior parietal-occipital infarcts The visualized paranasal sinuses and mastoid air cells are clear. The skull and scalp are within normal limits. CT CERVICAL SPINE: There is no evidence for fracture in the cervical spine. Alignment is normal. Multilevel degenerative disc and facet disease. No destructive osseous lesions are seen. Bilateral carotid calcifications. Impression: 1. Large bilateral SUPPLY ANALYST territory infarcts, suspect chronic. No acute hemorrhage. 2. No acute osseous abnormality in the cervical spine. Findings discussed with Dr. Thomas at 04/06/2021 5:40 AM. FOR INTERNAL CODING PURPOSES RESULT CODE: (C) ------- Exposure: One or more of the following individualized dose reduction techniques were utilized for thi s examination: 1. Automated exposure control 2. Adjustment of the mA and/or kV according to patient size 3. Use of iterative reconstruction technique. Electronically signed by: Alphonso Murguia MD (04/06/2021 5:40 AM) [id number]
--- NOTE | 2021-04-06 05:46 | RAD ---
XR CHEST 1V History: Fall, chest wall pain left. Comparison: Shoulder radiographs 03/16/2021 Technique: Portable AP radiograph of the chest. Findings: The lungs are adequately and symmetrically inflated. No airspace consolidation, pleural effusion or p neumothorax. Calcification of the aortic arch. Cardiac mediastinal silhouette and pulmonary vasculatu re are within normal limits. Spinal stimulator leads project over the thoracic spine. There is irregu larity at the right clavicular head superior margin, suspect subacute injury. Left neck surgical clip . The left humerus fracture is not imaged on this exam. Impression: 1. No acute cardiopulmonary process. 2. Cortical irregularity at the superior aspect of the right clavicular head. Possibly subacute inju ry. Correlate with tenderness at this location. Electronically signed by: Alphonso Murguia MD (04/06/2021 5:43 AM) [id number]
--- NOTE | 2021-04-06 05:48 | RAD ---
XR HUMERUS_LT 2 VIEWS History: Fall, chest wall pain on the left. Comparison: Chest x-ray 04/06/2021 Technique: 2 views the left shoulder. Findings: Mildly comminuted fracture of the proximal humerus surgical neck with angulation and displacement. Ca lcification in region of the rotator cuff insertion are likely chronic. The visualized left lung is c lear. Degenerative changes of the acromioclavicular joint. Mild contour irregularity in the lateral s ixth and seventh ribs, likely old healed fracture. Impression: 1. Mildly comminuted proximal left humerus fracture at the surgical neck with angulation and displac ement. Electronically signed by: Alphonso Murguia MD (04/06/2021 5:45 AM) [id number]
[2021-04-06] MEDS ORDERED: ONDANSETRON PF 4 MG/2 ML VIAL. IVP PRN (06:45)
[2021-04-06] MEDS ORDERED: ACETAMINOPHEN 325 MG TABLET PO PRN (06:45)
[2021-04-06] MEDS ORDERED: FUROSEMIDE 40 MG/4 ML VIAL IVP ONE (07:00)
[2021-04-06] MEDS ORDERED: IV NORMAL SALINE 1,000ML 1,000 ML IV STA (09:43)
[2021-04-06 10:14] LABS: BASO # 0.1 x10^3/uL (0.0-0.2); BASO % 1 % (0-3); EOS % 0 % (0-3); HEMATOCRIT 28.3 % (39.0-53.0); HEMOGLOBIN 9.5 g/dL (13.0-17.5); LYMPH # 1.1 x10^3/uL (1.0-4.8); LYMPH % 11 % (24-48); MEAN CORPUSCULAR HEMOGLOBIN 34 pg (25-35); MEAN CORPUSCULAR HGB CONC 33 g/dL (31-37); MEAN CORPUSCULAR VOLUME 102 fL (79-100); MONO # 0.9 x10^3/uL (0.0-1.1); MONO % 9 % (0-9); NEUT % 79 % (31-73); PLATELET COUNT 204 x10^3/uL (140-400); RED BLOOD COUNT 2.79 x10^6/uL (4.30-5.70); WHITE BLOOD COUNT 10.1 x10^3/uL (4.0-11.0)
[2021-04-06] MEDS ORDERED: IV NORMAL SALINE 1,000ML 1,000 ML IV ONE ×3 (10:30→13:00)
[2021-04-06] MEDS ORDERED: NOREPINEPHRINE BITARTRATE 8 MG in IV DEXTROSE 5% 250 ML IV PRN (11:00)
--- NOTE | 2021-04-06 11:00 | NUR ---
PT WAS ADMITTED FROM [facility] TO THE ICU FOR MONITORING AND HIGHER LEVEL OF CARE. UPON TAKING OVER PATIENTS CARE, PT BP WAS 62/40, PT WAS IN TRENDELENBURG POSITION AND RECEIVED TWO LITERS OF FLUID. DR. VALLES ORDERED FOR ANOTHER BOLUS OF NORMAL SALINE AND LEVOPHED AT 10 ML PER HOUR, GLUCAGON, AND PROTONIX DRIP. CT ORDERED OF CHEST, ABD, PELVIS.
[2021-04-06] MEDS ORDERED: diphenhydrAMINE HCL 25 MG CAPSULE PO PRN (11:30)
[2021-04-06] MEDS ORDERED: GLUCAGON,HUMAN RECOMBINANT 1 MG KIT. IV ONE ×2 (11:30→13:00)
[2021-04-06] MEDS ORDERED: LACT1TAB8 PO (11:46)
[2021-04-06] MEDS ORDERED: ALBU2.5V8 INH (11:46)
[2021-04-06] MEDS ORDERED: INSU100C4 SQ (11:46)
[2021-04-06] MEDS ORDERED: OLAN5TAB67 PO (11:46)
[2021-04-06] MEDS ORDERED: RIVA10TA PO (11:46)
[2021-04-06] MEDS ORDERED: THIA100T57 PO (11:46)
[2021-04-06] MEDS ORDERED: INSU100I32 SQ ×2 (11:46)
[2021-04-06] MEDS ORDERED: MAGN400O7 PO (11:46)
[2021-04-06] MEDS ORDERED: HALO2TAB PO (11:46)
[2021-04-06] MEDS ORDERED: CELE200C PO (11:46)
[2021-04-06] MEDS ORDERED: FENT1PAT15 TP (11:46)
[2021-04-06] MEDS ORDERED: MULT-245 PO (11:46)
[2021-04-06] MEDS ORDERED: VALP250S3 PO (11:46)
[2021-04-06] MEDS ORDERED: FAMO-63 PO (11:46)
[2021-04-06] MEDS ORDERED: CHOL500021 PO (11:46)
--- NOTE | 2021-04-06 11:47 | NUR ---
Pt arrived to unit @ 0815 from ED with a BP of 60/33. Pt placed in Trendelenburg position and 500 mL NS bolus started. BP reassessed 82/50 (60). Pt placed on monitor for close monitoring. Bolus complete. BP 62/38. Dr. Molina notified. An additional 1.5 L NS bolus, CBC, and CT chest/abdomen/pelvis ordered. Second bolus complete. BP 69/50 (56). Orders to transfer pt to ICU and initiate 3rd NS bolus and levophed gtt. Pts left shoulder slightly more edematous, Dr. Molina notified. +radial pulse noted to HAROLDO. Pts skin is pale and cool. Transferred to ICU @ 1015 and report given to Shasta CHANG.
--- NOTE | 2021-04-06 12:00 | NUR ---
SHERRY CALLED FOR PICC LINE PLACEMENT.
[2021-04-06] MEDS ORDERED: TRANEXAMIC ACID 1,000 MG in IV NORMAL SALINE 50ML 50 ML IV ONE (12:15)
[2021-04-06 12:28] LABS: BASO # 0.1 x10^3/uL (0.0-0.2); BASO % 1 % (0-3); EOS # 0.1 x10^3/uL (0.0-0.7); EOS % 1 % (0-3); HEMATOCRIT 30.2 % (39.0-53.0); HEMOGLOBIN 10.2 g/dL (13.0-17.5); LYMPH # 1.6 x10^3/uL (1.0-4.8); LYMPH % 15 % (24-48); MEAN CORPUSCULAR HEMOGLOBIN 34 pg (25-35); MEAN CORPUSCULAR HGB CONC 34 g/dL (31-37); MEAN CORPUSCULAR VOLUME 101 fL (79-100); MONO # 1.2 x10^3/uL (0.0-1.1); MONO % 12 % (0-9); NEUT # 7.5 x10^3uL (1.8-7.7); NEUT % 71 % (31-73); PLATELET COUNT 222 x10^3/uL (140-400); RED CELL DISTRIBUTION WIDTH 13.3 % (11.5-14.5); WHITE BLOOD COUNT 10.5 x10^3/uL (4.0-11.0)
--- NOTE | 2021-04-06 12:30 | NUR ---
patient is requiring norepinephrine drip, and other caustic medications, a PICC line is medically necessary. Patient is attempting to pull out IV lines and monitors, soft restraints placed, order for non violent restaints. Addendum: 04/06/21 at 1510 by CHAYITO GAMEZ RN due to pt's change in condition, pt unable to sign consent for picc line, which is medically necessary. Addendum: 04/07/21 at 1510 by CHAYITO GAMEZ RN The time this note was written is incorrect, the correct time of this note is 6600
[2021-04-06 12:36] LABS: CALCIUM 7.6 mg/dL (8.5-10.1); CREATININE 0.7 mg/dL (0.7-1.3); GFR 112.1; POTASSIUM 4.2 mmol/L (3.5-5.1)
[2021-04-06 12:42] LABS: ALBUMIN 2.1 g/dL (3.4-5.0); ALBUMIN/GLOBULIN RATIO 0.7 (1.0-1.7); TOTAL BILIRUBIN 0.4 mg/dL (0.2-1.0)
[2021-04-06] MEDS: PANTOPRAZOLE IV 80 MG in IV NORMAL SALINE 100ML 100 ML IV SCH ×2 (13:00→20:56)
--- NOTE | 2021-04-06 13:18 | RAD ---
Exam: CT head without contrast. Date: 04/06/2021, comparison:CT head and cervical spine without contrast from earlier today Indication: Altered mental status, status post fall Technique: Helical acquisitions are obtained from the foramen magnum to the vertex and through the ce rvical spine without IV contrast. Sagittal and coronal reformatted images are obtained and reviewed . Findings: CT head without contrast The study somewhat limited due to motion blur. There is low attenuation within the periventricular white matter consistent with chronic small vessel ischemic disease. Prominence of cortical sulci and ventricular system is noted. There is cerebral at rophy. Chronic bilateral POOL HAND infarcts redemonstrated. Midline structures are central. No hydrocephalus. No suspicious cerebral edema. No mass lesion or mid line shift is seen. No extra axial fluid collection, intracranial hemorrhage or acute ischemia is de tected. The visualized paranasal sinuses and mastoid air cells are clear. The osseous calvarium appea rs unremarkable. Impression: 1.Chronic small vessel ischemic disease and cerebral atrophy. 2.No acute findings. End impression CT cervical spine findings: Normal sagittal alignment is preserved. Craniocervical and C1-2 articulation appears preserved. The v ertebral body heights and intravertebral disc spaces are maintained. There is no henry or retrolist hesis. There is no perching of facets. Mild diffuse osteophytic spurring is noted. No prevertebral so ft tissue swelling is identified. There are no fractures. No definite lymphadenopathy or masses are seen within the neck. The visualized thyroid and salivary glands appears preserved. Impression: No acute abnormality seen in the CT scan cervical spine. Spondylotic changes. PQRS Compliance Statement: One or more of the following individualized dose reduction techniques were utilized for this examinat ion: 1. Automated exposure control 2. Adjustment of the mA and/or kV according to patient size 3. Use of iterative reconstruction technique Electronically signed by: Ansley Henriquez MD (04/06/2021 1:15 PM) [facility]
--- NOTE | 2021-04-06 13:25 | RAD ---
PQRS Compliance Statement: One or more of the following individualized dose reduction techniques were utilized for this examinat ion: 1. Automated exposure control 2. Adjustment of the mA and/or kV according to patient size 3. Use of iterative reconstruction technique Exam performed: CT chest, abdomen and pelvis with contrast HISTORY: Fall, patient is on blood thinners DATE OF SERVICE: 04/06/2021. COMPARISON: None available. TECHNIQUE: Contiguous helical acquisitions are obtained through the chest, abdomen and pelvis without IV contrast. Sagittal and coronal reformatted images are obtained and reviewed. FINDINGS: CT of chest: Structures at the thoracic inlet including both lobes of the thyroid gland are normal. Unopacified ne ck and intrathoracic great vessels are normal in course and caliber. Diffuse atheromatous aortic calc ification is seen. Extensive atheromatous coronary calcification with a suspected stent in the left a nterior descending branch. The heart size is normal. No pericardial effusion. No mediastinal or hilar adenopathy is seen. Lungs are clear. There are mild interstitial opacities in the dependent aspect o f both lower lobes likely chronic. Bones are normal. CT abdomen and pelvis: Unopacified liver, spleen, pancreas and gallbladder are normal. Both adrenal glands and bilateral kid neys are normal in size with no evidence of hydronephrosis or nephrolithiasis. Diffuse atheromatous a ortic calcification is noted. Small and large bowel loops are nondilated and unremarkable. The urinar y bladder is distended. No pelvic masses or lymphadenopathy seen. There is stool impaction the rectos igmoid region. Bones are normal. IMPRESSION: No acute findings seen in the CT chest, abdomen and pelvis. Chronic changes as outlined above. Electronically signed by: Ansley Henriquez MD (04/06/2021 1:23 PM) [facility]
--- NOTE | 2021-04-06 13:31 | HP ---
DATE OF SERVICE: 04/06/2021 ADMIT DATE: 04/06/2021 HISTORY OF PRESENT ILLNESS: The patient is a 70-year-old male patient, a resident at [facility] since 04/02/2021. He apparently fell this morning and had a witnessed fall where he struck his head, fell on his left side and localized pain primarily in his left arm. The patient has a history of left-sided weakness from previous CVA. He also had a history of anxiety disorder, cerebral infarction, embolism and thrombosis of aorta, major depressive disorder, neurological neglect, problems with urethra, TIAs, dementia, psychotic disorder, dysphagia, and long-term use of anticoagulant as he is on Xarelto. He was extensively investigated in the Emergency Room and apparently on arrival, his vital signs were stable. His heart rate was 72, blood pressure was 143/94, temperature was 98.3, respiratory rate was 14 and oxygen saturation was 94%. Has had lab work done, which showed his hemoglobin was 12.5, hematocrit 37 with normal white cell count and platelets. His prothrombin time, INR and APTT were normal. Has had imaging including a CT scan of the head and cervical spine. The CT scan of the head showed that he has large bilateral posterior cerebral artery territory infarct, suspect chronic, no acute hemorrhage, no acute osseous abnormality in the cervical spine. His x-ray of the humerus showed he has mildly comminuted proximal left humeral fracture at the surgical neck with angulation and displacement. His chest x-ray showed no acute cardiopulmonary process, clinical irregularity at the superior aspect of the right clavicular head, possible subacute injury, correlate with tenderness of this location. The patient was brought in a shoulder immobilizer. Apparently, ER physician spoke with the orthopedic surgeon, Dr. Steinberg, who did not feel that this patient requires any surgical intervention, rather he was admitted for pain management and was admitted to [address] [place] [address] initially for pain management and to start the process of rehabilitation. By the time he arrived to the floor, his systolic pressure was only 60 mmHg. The patient was started on IV fluid and received a total of 2 liters of fluid before he was moved to the ICU. PAST MEDICAL HISTORY: Significant for anxiety disorder, cerebral infarction, embolism and thrombosis of unspecified parts of aorta, neurologic neglect syndrome, unspecified shoulder injury, disorder of the urethra, history of transient ischemic attack, underweight, unspecified dementia with behavioral disturbance. PAST SURGICAL HISTORY: Unremarkable. FAMILY HISTORY: Unobtainable. SOCIAL HISTORY: He is a resident at [facility]. He apparently moved there on 04/02/2021. He does not smoke, drink alcohol or use recreational drugs. REVIEW OF SYSTEMS: As per history of present illness. ALLERGIES: He has no known drug allergies. MEDICATIONS: He is currently on following medications: He is on albuterol sulfate 1 puff every 4 hours, rivaroxaban 2.5 mg twice a day, warfarin 3 mg daily, atorvastatin calcium 80 mg, carvedilol 3.125 mg p.o. b.i.d., Celebrex 200 mg, he takes 2 capsules daily. Fentanyl patch 25 mcg per hour every 72 hours, valproic acid 250 twice a day, haloperidol 2 mg every 12 hours, olanzapine 5 mg twice a day, latanoprost 2.5 mL 1 drop to both eyes at bedtime, Lactobacillus acidophilus 1 tablet daily, magnesium hydroxide, milk of magnesia 30 mL p.o. daily p.r.n. for constipation; famotidine 20 mg once a day, NovoLog insulin 3 units 3 times a day before meals. He is also on Basaglar insulin 18 units at bedtime, thiamine 100 mg daily, cholecalciferol 33,000 daily, multivitamin 1 tablet once a day and tamsulosin 0.4 mg at bedtime. PHYSICAL EXAMINATION: GENERAL: On examining him, he was resting flat in bed, in no apparent distress. He was extremely pale, not jaundiced, cyanosed. No thyromegaly. No jugular venous distention. No limb edema. VITAL SIGNS: His heart rate was 90, blood pressure ____ 60/40, temperature was 98, respiratory rate was 14 and oxygen saturation was 100% on room air. HEAD, EYES, EARS, NOSE, AND THROAT: Normocephalic, atraumatic. NECK: Supple. HEART: Showed normal first and second heart sounds. No gallop, rub or murmur. CHEST: Clear to auscultation. No crepitation or rhonchi. ABDOMEN: Distended, soft, nontender. NEUROLOGIC: He is surprisingly awake, alert, responding, complaining of being cold. LABORATORY DATA: His most recent lab work showed a white cell count of 10,000, hemoglobin 9.5, hematocrit 28, MCV 102 and platelet count 204,000. His chemistry showed a serum sodium 139, potassium 4.5, chloride 103, bicarbonate 24, anion gap of 12, BUN 26, creatinine 1.1. Estimated GFR was 66 mL per minute. His glucose 166, calcium was 9.5, magnesium 2.2. Total bilirubin, AST, ALT, alkaline phosphatase were normal. His beta-natriuretic peptide was 3827. Total protein 6.8, albumin was 2.9. His PT, INR and APTT are normal. So far, the patient has received about 4 liters of normal saline. PLAN: We will start him on a Protonix drip, glucagon 5 mg in 100 mL to reverse the effect of Coreg and 2 units of fresh frozen plasma if it is approved by the blood bank. I spoke with the pharmacy at [facility] and they have Kcentra. It will take about an hour before that medication arrives to our hospital. YONATHAN DR: Dannie TID: [id number]
[2021-04-06] MEDS ORDERED: HALOPERIDOL LACT 5 MG/ML VIAL. IVP ONE (14:15)
--- NOTE | 2021-04-06 15:05 | NUR ---
Order Verified Yes Consent signed No due to confusion, per Dr Molina, medically necessary Previous PICC placement unk Past Medical/Surgical history and current diagnosis reviewed Yes Patient Medical /Surgical History Related to PICC line placement none Special considerations for PICC line placement None PICC placement indication Caustic medication class drug usage, poor access PICC Nurse Jenn Hanson RN
--- NOTE | 2021-04-06 15:08 | NUR ---
Procedure: Pt unable to understand explanation of PICC, medically necessary per Dr Molina. IV Device Protocol was used. Hand hygiene performed. Standardized central line checklist was utilized. The patient was placed in the supine position, the Right arm was prepped with chlorhexidine and patient draped with maximum sterile barrier. 1 mL 1% lidocaine was infiltrated into the skin to provide local anesthesia. A thorough assessment of right upper extremity completed. Using real-time ultrasound guidance and standardized micro puncture set, the Basilic vein was punctured and a peel away sheath was placed using the modified Seldinger technique. A tip location device was used to ensure adequate catheter placement. The catheter was secured using a securement device and an antimicrobial patch was applied directly on the insertion site followed by a transparent dressing. All ports withdraw blood and flush without resistance. Patient tolerated the procedure without apparent complication. A Dual Lumen Power PICC placement successful and uncomplicated. Placement verified by EKG tip confirmation system with green p wave and ari observed. Tip located in the low SVC per 3CG Complications:None
--- NOTE | 2021-04-06 15:30 | NUR ---
12 F BENJAMIN PLACED WITH 10 CC NS IN BALLOON. PT TOLERATED PROCEDURE WELL.
--- NOTE | 2021-04-06 15:50 | NUR ---
Blood transfusion started at 60 ml/hr. Tubing was primed with normal saline and then primed with FFP. Transfusion started at 60 ml for 15 minutes and patient was monitored closely for 15 minutes. No reaction noted and transfusion increased to 150 ml/hr.
[2021-04-06] MEDS ORDERED: KCENTRA IV ONE (17:00)
[2021-04-06] MEDS ORDERED: HUM PROTHROMBIN CPLX IV ONE (17:25)
[2021-04-06] MEDS ORDERED: [UNRECOGNIZED DRUG - OTHER] IV ONE (17:25)
--- NOTE | 2021-04-06 17:53 | NUR ---
transfusion complete. order placed for second FFP.
--- NOTE | 2021-04-06 18:15 | NUR ---
Blood transfusion started at 60 ml/hr. Tubing primed with NS and then primed with the FFP. Transfusion started at 60 ml/hr, patient monitored closely for 15 minutes. No reaction noted, transfusion was increased to 150 ml/hr.
[2021-04-06 18:37] LABS: BACTERIA,URINE 0 /HPF (0-FEW); BILIRUBIN,URINE NEG (NEG); CLARITY,URINE CLEAR; COLOR,URINE YELLOW; GLUCOSE,URINE 100 mg/dL (NEG); NITRITE,URINE NEG (NEG); SQUAMOUS EPITHELIAL CELL,UR FEW /LPF; WBC,URINE 0 /HPF (0-4)
--- NOTE | 2021-04-06 19:25 | NUR ---
Pt restless in bed at change of shift, yelling out "Hey...Shahab....hey....get me out of here...come on!!" Pt attempting to get out of bed but has soft restraints to BLE and to right UE, placed on by prior shift. Pt is unable to be redirected, continues to yell out and be agitated in bed. Pt with left arm immobilizer on r/t humerus fx. Pt also has right displaced clavicle fx. Pt yells out in pain when turned or upper arms are moved. Pt with Protonix gtt running along with Levo gtt running, titrating down as BP meets requirements. Pt has 2nd unit of FFP infusing, no transfusion reactions noted thus far. Pt with Espinal catheter to dependent drainage, clear conrad urine noted. Pt incont of small amount of formed stool. Pt seemed to settle down some after turned and cleaned. VSS. Daughter Estefany called for update on status.
--- NOTE | 2021-04-06 19:37 | RAD ---
EXAMINATION: Right shoulder radiograph. VIEWS: 3 COMPARISON: 03/16/2021 INDICATION:70 years, Male, right shoulder pain. FINDINGS: No acute fracture, dislocation or subluxation. However, in correlation with earlier CT chest exam, th ere is a displaced distal right clavicular fracture, the proximal fragment displaced posteriorly appr oximately 1.5 cm. No soft tissue swelling. Right lung base atelectatic changes. Partially visualized right PICC line catheter. IMPRESSION: Displaced distal right clavicular fracture, better seen on previous CT exam. Electronically signed by: Sima London MD (04/06/2021 7:34 PM) [facility]
--- NOTE | 2021-04-06 20:45 | NUR ---
2nd unit of FFP completed. No transfusion reaction noted, VSS. Pt restless in bed, was incont of small BM. Pt cleaned and turned, now seems to be more comfortable. Titrating Levo gtt for BP.
--- NOTE | 2021-04-06 22:45 | NUR ---
Levophed gtt turned off at 2230, last few BP have been consistent with MAP>65: 148/60, 127/57, 133/57. Pt remains awake in bed, restless at times.
[2021-04-07] VITALS (22 sets, daily range): BP systolic 102–156; BP diastolic 48–71
[2021-04-07] MEDS ORDERED: HALOPERIDOL LACT 5 MG/ML VIAL. IVP ONE (05:30)
[2021-04-07 05:39] LABS: BASO # 0.1 x10^3/uL (0.0-0.2); BASO % 1 % (0-3); EOS # 0.1 x10^3/uL (0.0-0.7); EOS % 1 % (0-3); HEMATOCRIT 29.1 % (39.0-53.0); HEMOGLOBIN 9.7 g/dL (13.0-17.5); LYMPH % 10 % (24-48); MEAN CORPUSCULAR HEMOGLOBIN 34 pg (25-35); MEAN CORPUSCULAR HGB CONC 34 g/dL (31-37); MEAN CORPUSCULAR VOLUME 101 fL (79-100); MONO # 0.9 x10^3/uL (0.0-1.1); MONO % 9 % (0-9); NEUT # 8.9 x10^3uL (1.8-7.7); NEUT % 81 % (31-73); PLATELET COUNT 173 x10^3/uL (140-400); RED BLOOD COUNT 2.89 x10^6/uL (4.30-5.70); RED CELL DISTRIBUTION WIDTH 13.2 % (11.5-14.5); WHITE BLOOD COUNT 11.1 x10^3/uL (4.0-11.0)
[2021-04-07 05:50] LABS: ALBUMIN 2.1 g/dL (3.4-5.0); ALBUMIN/GLOBULIN RATIO 0.6 (1.0-1.7); CALCIUM 7.6 mg/dL (8.5-10.1); CREATININE 0.7 mg/dL (0.7-1.3); GFR 112.1; POTASSIUM 3.8 mmol/L (3.5-5.1); TOTAL BILIRUBIN 0.8 mg/dL (0.2-1.0); TOTAL PROTEIN 5.5 g/dL (6.4-8.2)
--- NOTE | 2021-04-07 06:10 | NUR ---
Around 0445- Pt very restless in bed again, yelling out "I want to leave....hey....get me out of here...now!!" Pt cussing at staff and yells even louder when redirected. Pt very restless, kicking legs out of bed and wincing in pain when arms are moved. HR 110-120's. Dr Molina called for orders, Haldol 5mg IV x1. Pt after about 30mins now resting comfortable in bed with eyes closed. HR now 80-90's. BP remains MAP>65.
[2021-04-07] MEDS: PANTOPRAZOLE IV 80 MG in IV NORMAL SALINE 100ML 100 ML IV SCH ×2 (09:53→20:01)
[2021-04-07] MEDS: MORPHINE SULFATE 20 MG/ML CONC SOLUTION. SL PRN (16:19)
--- NOTE | 2021-04-07 21:11 | PN ---
DATE: 04/07/2021 SUBJECTIVE: The patient is resting flat in bed, no apparent respiratory distress. He is awake, alert, confused. He is stable today. His blood pressure is normal range. He is maintaining his oxygen saturation 100% on 2 liters of oxygen. In fact, he is 97% on room air. He apparently broke the surgical neck of his left femur and also has a fracture of the clavicle with mild displacement. PHYSICAL EXAMINATION: GENERAL: When I saw him this morning, he was pale, but no jaundice, cyanosis or thyromegaly. No jugular venous distention. No limb edema. VITAL SIGNS: His heart rate was 89, blood pressure 145/49, temperature was 98.7, respiratory rate was 14, and oxygen saturation was 97%. HEAD, EYES, EARS, NOSE, AND THROAT: Normocephalic, atraumatic. NECK: Supple. HEART: Showed normal first and second heart sounds. No gallop or murmur. CHEST: Clear to auscultation, no crepitation or rhonchi. ABDOMEN: Distended, soft, nontender. NEUROLOGIC: He is demented. He has cortical blindness and bilateral posterior cerebral artery territory infarct; however, he is able to move all extremities without difficulty. His intake over the last 24 hours was 4996, output was 1300. LABORATORY DATA: This morning showed a white cell count 11,000, hemoglobin 10, hematocrit 30, MCV 101 and platelet count of 173,000. Serum sodium 141, potassium 3.8, chloride 108, bicarbonate 25, anion gap of 8, BUN 12, creatinine 0.7. Estimated GFR was 117 mL per minute. His glucose 114, calcium is 7.6. Total bilirubin, AST, ALT, alkaline phosphatase were normal. Total protein 5.5, albumin was 2.1. ASSESSMENT: Fall with resultant fracture of the surgical neck of the left femur and also mildly displaced right distal clavicular fracture. Both of them are not amenable to surgical intervention. The patient has a multitude of medical problems including cerebral infarction, embolism and thrombosis of unspecified parts of the aorta, neurologic neglect syndrome, history of transient ischemic attack, underweight, dementia with behavioral disturbances. PLAN: We will continue with all his other medications. Start him on pain medication. If he remains stable, he will be transferred tomorrow to the [facility]. EYAL DR: Dannie TID: [id number]
[2021-04-08 00:01] VITALS: BP 122/81
[2021-04-08] MEDS: MORPHINE SULFATE 20 MG/ML CONC SOLUTION. SL PRN ×2 (00:42→09:24)
[2021-04-08 03:25] VITALS: BP 160/64
[2021-04-08 04:00] VITALS: BP 114/65
[2021-04-08 05:40] VITALS: BP 159/64
--- NOTE | 2021-04-08 05:45 | NUR ---
Pt awake in bed with TV one at change of shift, yelling out "Lets go.....lets go!" Pt attempting to get out of bed but is more redirectable then previous night. Pt with left arm immobilizer on r/t humerus fx. Pt also has right displaced clavicle fx but seems to be moving arm more frequently and with less pain. Pt with Protonix gtt running in RUE PICC. Pt with Espinal catheter to dependent drainage, clear conrad urine noted. Pt incont of small smear of stool. Pt winces or yells out in pain when turned or left arm is moved, had PRN Roxanol, received 1 dose this shift. Daughter Estefany called for update on status. Tentative plan is [facility], DC pack ready.
[2021-04-08 09:10] VITALS: BP 114/96
--- NOTE | 2021-04-08 10:20 | NUR ---
Discharge orders in place. Report called to CHARLENE Alexander at [facility]. BP 114/96, HR 100, O2 96%. PICC and greene discontinued. EMS at bedside. Pt belongings sent with pt. Discharged @ 7627.
== END 2021-04-08 09:55 | disposition hospice, inpatient (51) | DRG 563 ==
LOC: ER 04:10 → 1 SOUTH 06:31 → OBSVTOIN 09:30 → ICU 11:05
PROVIDERS: ADMIT Internal Medicine; ATTEND Internal Medicine
PROC: 30233K1 Transfusion of Nonautologous Frozen Plasma into Peripheral Vein, Percutaneous Approach (ICD-10-PCS; principal; 2021-04-06)
DX: S42.292A Other displaced fracture of upper end of left humerus, initial encounter for closed fracture (principal); I69.354 Hemiplegia and hemiparesis following cerebral infarction affecting left non-dominant side; F01.51 Vascular dementia, unspecified severity, with behavioral disturbance; S42.031A Displaced fracture of lateral end of right clavicle, initial encounter for closed fracture; Z66 Do not resuscitate; I25.10 Atherosclerotic heart disease of native coronary artery without angina pectoris; I48.91 Unspecified atrial fibrillation; F32.9 Major depressive disorder, single episode, unspecified; F41.9 Anxiety disorder, unspecified; M19.90 Unspecified osteoarthritis, unspecified site; I50.9 Heart failure, unspecified; E11.9 Type 2 diabetes mellitus without complications; W01.0XXA Fall on same level from slipping, tripping and stumbling without subsequent striking against object, initial encounter; Y93.89 Activity, other specified; Y92.89 Other specified places as the place of occurrence of the external cause; Z87.891 Personal history of nicotine dependence; Z79.01 Long term (current) use of anticoagulants; Y99.8 Other external cause status; Z20.822 Contact with and (suspected) exposure to COVID-19
CPT/HCPCS: 36415; 36430; 36569; 70450; 71045; 71250; 72125; 73030; 73060; 74176; 80048; 80053; 80076; 81001; 82550; 83605; 83690; 83735; 83880; 84443; 84484; 85014; 85018; 85025; 85610; 85730; 86850; 86900; 86901; 86927; 87426; 93005; 96361; 96372; 96374; C9113; G0378; G0379; J1610; J1630; J2060; J2270; J7120; J7194; P9017; U0003; 99285-25; J7030